=== PATIENT | female | born 1995 | race Caucasian/White ===

== ENCOUNTER 2024-08-28 09:53 | Outpatient (CLI) | payer OTHER, SELFPAY ==
[2024-08-28 18:26] LABS: Basophils # 0.1 K/mm3 (0-0.2); Basophils % 0.6 % (0.1-2.0); Eosinophils # 0.2 K/mm3 (0.0-0.4); Eosinophils % 1.8 % (0.1-12.0); Hematocrit 34.7 % (37.0-47.0); Hemoglobin 10.7 g/dL (12.2-16.2); Lymphocytes # 3.2 K/mm3 (0.7-4.5); Lymphocytes % 33.9 % (10-50); Mean Corpuscular HGB Conc 30.8 g/dL (31.8-35.4); Mean Corpuscular Hemoglobin 25.9 pg (27.0-31.2); Mean Platelet Volume 9.3 fl (7.4-10.4); Monocytes # 0.4 K/mm3 (0.1-1.0); Monocytes % 3.9 % (1.7-9.3); Neutrophils # 5.6 K/mm3 (1.8-7.8); Neutrophils % 59.6 % (37.0-80.0); Platelet Count 441 K/mm3 (142-424); Red Blood Count 4.13 M/mm3 (4.20-5.40); Red Cell Distribution Width 14.9 % (11.5-17.5); White Blood Count 9.3 K/mm3 (4.8-10.8)
[2024-08-28 19:34] LABS: Albumin Level 4.1 g/dl (3.5-5.0); Chloride 104 mmol/L (98-107); Potassium 4.4 mmoL/L (3.5-5.1); Sodium 138 mmol/L (136-145)
[2024-08-28 19:37] LABS: Alanine Aminotransferase 44 U/L (12-78); Albumin/Globulin Ratio 1.5 (1.1-1.8); Alkaline Phosphatase 126 U/L (38-126); Anion Gap 13.4 mEq/L (5-15); Aspartate Amino Transferase 41 U/L (14-36); Bilirubin,Total 0.3 mg/dl (0.2-1.3); Blood Urea Nitrogen 20 mg/dl (7-17); Carbon Dioxide 25 mmol/L (22.0-30.0); Cholesterol 187 mg/dl (140-200); Estimated Glomerular Filt Rate 118 ml/min (>60); GFR (African American) 143 ML/MIN (>60); Globulin 2.8 g/dL (1.3-3.2); Total Protein,Serum 6.9 g/dl (6.3-8.2); Triglycerides 103 mg/dl (30-150); VLDL Cholesterol 21 mg/dL (0-40)
[2024-08-28 19:38] LABS: Calcium 8.8 mg/dl (8.4-10.2); Chol/HDL Ratio 5.8 (1-3.5); Glucose 97 mg/dl (74-100); HDL Cholesterol 32 mg/dl (40-60)
[2024-08-28 20:06] LABS: Direct LDL Cholesterol 137.04 mg/dL (100-129)
== END 2024-08-28 23:59 | disposition home or self-care (01) ==
LOC: LAB.DROPOF 08-29 12:02
PROVIDERS: PCP Family Medicine; Visit Provider Family Medicine
DX: Z76.89 Persons encountering health services in other specified circumstances (principal); M79.89 Other specified soft tissue disorders; R60.9 Edema, unspecified; Z98.891 History of uterine scar from previous surgery; E66.9 Obesity, unspecified; F19.11 Other psychoactive substance abuse, in remission
CPT/HCPCS: 80053; 80061; 84443; 85025

== ENCOUNTER 2025-01-04 14:50 | Outpatient (CLI) | payer OTHER, SELFPAY ==
--- OUTSIDE RECORDS SUMMARY | 2025-01-05 14:38 | XMS_ITS | Data Portability ---
Author Organization [facility] Address [address] [place] [address] Assessment Encounter Date Assessment Date Assessment LastModified by Organization Details LastModified Time 05/01/2020 05/01/2020 P2 @ 32 4/7 weeks, PPROM. To L&D now. Nursing and production tester made aware. [email or web address] Not available 05/01/2020 16:06:47 06/11/2020 06/11/2020 DIscussed how to perform wet/dry dressing changes. SHe understands. 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 FOB is out of the area working. f/u 3 days. Start Z_pack. ER precautions. MUST KEEP CLEAN AND DRY! 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 Lab CBC w/ auto diff 2020 021 [email or web address] [facility], [address] [place], [address], 09:12:49 ESR (erythrocy te sedimentat ion rate), blood 2020 [email or web address] [facility], [address] [place] [address], [address], 09:12:49 TSH, ultra-sens itive, serum 2020 [email or web address] [facility], [address] [place] [address], [address], 09:12:49 lh + FSH, serum 2020 [email or web address] [facility], [address] [place] [address], [address], 09:12:50 prolactin, serum 2020 [email or web address] [facility], [address] [place] [address], [address], 09:12:50 testostero ne, free + total, serum 2020 [email or web address] [facility], [address] [place] [address], [address], 09:12:50 HbA1c (hemoglobi n A1c), blood 2020 [email or web address] [facility], [address] [place] [address], [address], 09:12:50 culture, urine 2020 [email or web address] [facility], [address] [place] [address], [address], 09:12:50 urinalysis , complete 2020 [email or web address] [facility], [address] [place] [address], [address], 1 09:12:50 test, urine 2020 021 nallely [employer] [employer], [address] [place] [address] , [place], [address], 1 22:09:13 pap, IG + CT/NG/TV + HR HPV + reflex HPV (16+18+45) 2020 021 [facility], [address] [place] [address], [address], 1 13:10:18 culture, wound 2019 020 [facility], [address] [place] [address], [address], 0 20:08:38 urinalysis , dipstick 2019 020 [facility], [address] [place] [address] , [place], [address], 0 08:14:40 urinalysis , dipstick [email or web address] [employer], [address] [place] [address] , [place], [address], 0 08:44:50 Referral gastroente rologist referral 2020 nallely Reynaga MD, [address] [place] [address] , [place] [address], [place], [address], 2 23:21:31 gynecologi c surgery referral - Dx laparoscop y, hysterosco py DC 2020 nallely Not available 2 23:21:28 home health referral 2019 [email or web address] Not available 0 10:49:52 Procedures None recorded. Surgeries None recorded. Imaging US, transvagin al 2020 021 nallely [employer] [employer], [address] [facility] , [place], [address], 1 22:09:13 US, obstetric, follow-up 2019 GAIL Vang [employer], [address] [facility] , [place], [address], 0 17:07:27 Medication Orders minocyclin e 100 mg tablet 2020 [email or web address] [facility] [id number], [address] [facility] , [place], [address], 4 14:07:58 Sprintec (28) 0.25 mg-0.035 mg tablet 2020 021 [facility] [id number], [address] [facility] , [place], [address], 1 22:09:13 fluconazol e 150 mg tablet 2019 020 [email or web address] [facility] [id number], [address] [facility] , [place], [address], 1 11:56:04 ibuprofen 800 mg tablet 2019 021 [email or web address] [facility] [id number], [address] [place], [address], 1 12:00:15 azithromyc in 250 mg tablet 2019 [email or web address] [facility] [id number], [address] [facility] , [place], [address], 0 16:46:34 Patient TargetsNo targets recorded. Patient Instructions Encounter Date Encounter Id Patient Instructions Last Modified By Organization Details Last Modified Time 06/18/2020 [id number] Recommended keeping area dry. Given a few ABD pads and recommend keeping raw areas loosely covered. tam Not available 06/18/2020 17:29:08 06/09/2021 [id number] The patient was counseled about the following procedures: Procedures planned: Total laparoscopic hysterectomy, Tota l abdominal hysterectomy, vagi nal hysterectomy, diag nostic laparoscopy, BSO, possible USO or BSO, repeat section laparoscop ic sterilization, hys teroscopic sterilization, mikhail gnostic hysteroscopy, dila tion and curettage, Miduret hral Sling - Transobturator approach, Midureth ral Sling- Retropubic approach, uterosac ral vault suspension, endome trial ablation with NovaSure, sacrospi nous vaginal vault suspension, use of mesh for vaginal reconstruction and support, colporrap hy, hysteroscopic myomectomy, hyster oscopic polypectomy, chrom opertubation, diag nostic laparoscopy, diagnostic hysteroscopy, D&C. The indications and potential benefits of the proposed surgery were reviewed. 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 The alternatives to this procedure which include alternatives as below were discussed and patient prefers to proceed with the above surgical option. Alternative treatments offered: expectant management, further medical treatment trials, were discussed and patient prefers to proceed with the above surgical option. Issues Specific to her proposed procedure: Diagnostic laparoscopy and/or hysteroscopy- For this case we also addresed that this is intended as a diagnostic procedure that may or may not provide relief of preop symptoms The proposed benefit of the surgical procedure is for resolution of pre-op complaints/concern s, however no guarantee can be made regarding surgical outcome(s). Realistic expectations have been discussed and patient desires to proceed. [email or web address] Not available 06/09/2021 20:24:31 Reason for Referral Home Health Referral for Sulaiman arean wound disruption c-sectionn wound care, wet/.dry Daily Referring Physician: Mark Roth, PUTTY AND CAULKING SUPERVISOR, Encounter Date: 06/11/2020 Gynecologic Surgery Referral for Chronic pelvic pain of female Dx laparoscopy, hysteroscopy DC Referring Physician: Marlee Godoy PUTTY AND CAULKING SUPERVISOR, Encounter Date: 06/09/2021 Robotic Toy Inventor Referral for Painless rectal bleeding Referring Physician: Marlee Godoy PUTTY AND CAULKING SUPERVISOR, Encounter Date: 06/09/2021 Results Created Date Observation Date Name Description Value Unit Range Abnormal Flag Note LastModifiedBy Organization Detail LastModifiedTime 05/01/20 20 05/01/2020 US, obste tric, follo w-up Date 020 Not Available [facility] [employer] [address] [facility] , [place], [address], 05/01/2020 15:08:46 06/11/20 20 06/14/2020 cultu re, wound aerobic culture Final report Not Available [facility] ([facility]) [address] [place], [address], 06/19/2020 20:08:38 06/11/20 20 06/14/2020 cultu re, wound result 1 Mixed skin judith Not Available [facility] ([facility]) [address] [place], [address], 06/19/2020 20:08:38 06/11/20 20 06/19/2020 cultu re, wound anaerobic culture Final report abnormal Not Available [facility] ([facility]) [address] [place], [address], 06/19/2020 20:08:38 06/11/20 20 06/19/2020 cultu re, wound result 1 Anaero coccus prevot ii abnormal Moder ate growt h Not Available [facility] ([facility]) [address] [place], [address], 06/19/2020 20:08:38 06/09/20 21 06/10/2021 IGP,C TNG,A PTIMA HPV,R FX16/ 18,45 chlamydia, nuc. acid amp Negati ve negati ve Not Available [facility] ([facility]) [address] [facility], [place], [address], 06/12/2021 13:10:18 06/09/20 21 06/10/2021 IGP,C TNG,A PTIMA HPV,R FX16/ 18,45 gonococcus, nuc. acid amp Negati ve negati ve Not Available [facility] ([facility]) [address] [facility], [place], [address], 06/12/2021 13:10:18 06/09/20 21 06/11/2021 IGP,C TNG,A PTIMA HPV,R FX16/ 18,45 HPV aptima Negati ve negati ve This nucle ic acid ampli ficat ion test detec ts fourt een high- risk HPV types (16,1 8,31, 33,35 ,39,4 5,51, 52,56 ,58,5 9,66, 68) witho ut diffe renti ation . Not Available [facility] ([facility]) [address] [facility], [place], [address], 06/12/2021 13:10:18 06/09/20 21 06/12/2021 IGP,C TNG,A PTIMA HPV,R FX16/ 18,45 diagnosis: Commen t NEGAT JOSSELINE FOR INTRA EPITH ELIAL LESIO N OR LILI FRANCISCO . Not Available [facility] ([facility]) [address] [facility], [place], [address], 06/12/2021 13:10:18 06/09/20 21 06/12/2021 IGP,C TNG,A PTIMA HPV,R FX16/ 18,45 specimen adequacy: Commen t Satis facto ry for evalu ation . Endoc ervic al and/o r squam ous metap lasti c cells (endo cervi ray compo nent) are prese nt. Not Available [facility] ([facility]) [address] [facility], [place], [address], 06/12/2021 13:10:18 06/09/20 21 06/12/2021 IGP,C TNG,A PTIMA HPV,R FX16/ 18,45 clinician provided ICD10: Asim tejada N91.5 Z12.4 Z11.3 R82.9 0 Not Available [facility] ([facility]) [address] [place], [address], 06/12/2021 13:10:18 06/09/20 21 06/12/2021 IGP,C TNG,A PTIMA HPV,R FX16/ 18,45 performed by: Crystal Otto (ASCP ) Not Available [facility] ([facility]) [address] [place], [address], 06/12/2021 13:10:18 06/09/20 21 06/12/2021 IGP,C TNG,A PTIMA HPV,R FX16/ 18,45 . . Not Available [facility] ([facility]) [address] [place], [address], 06/12/2021 13:10:18 06/09/20 21 06/12/2021 IGP,C TNG,A PTIMA HPV,R FX16/ 18,45 note: Asim tejada The Pap smear is a scree carmelita test desig tyrel to aid in the detec tion of анна ligna nt and malig nant condi tions of the uteri ne cervi x. It is not a diagn ostic proce dure and shoul d not be used as the sole means of detec ting cervi ray cance r. Both false -posi tive and false -nega tive repor ts do occur . Not Available [facility] ([facility]) [address] [place], [address], 06/12/2021 13:10:18 06/09/20 21 06/12/2021 IGP,C TNG,A PTIMA HPV,R FX16/ 18,45 test methodology: Commen t This liqui d based ThinP rep(R ) pap test was scree tyrel with the use of an image guide abbi cole Not Available [facility] ([facility]) [address] [facility], [place], [address], 06/12/2021 13:10:18 06/09/20 21 06/09/2021 pregn joseph test, urine HCG negati ve Not Available [employer] [employer] [address] [facility] , [place], [address], 06/09/2021 13:02:03 02/21/20 US, obste tric, follo w-up No observ ation record ed. [email or web address] Not Available 2019 11:22:18 02/21/20 20 02/08/2020 US, obste tric, follo w-up No observ ation record ed. [email or web address] [facility] [address] [place], [address], 02/28/2020 13:24:20 02/21/20 20 02/08/2020 US, obste tric, follo w-up No observ ation record ed. [email or web address] [facility] [address] [place], [address], 02/28/2020 13:24:07 03/07/20 20 01/23/2020 US, obste tric, 2nd or 3rd trime ster, addit ional gesta tion No observ ation record ed. BARCODE [employer] [employer] [address] [facility] , [place], [address], 03/07/2020 09:32:58 03/10/20 20 03/07/2020 imagi ng/di agnos tic resul t No observ ation record ed. [email or web address] [facility] [address] [place], [address], 03/13/2020 13:00:33 05/06/20 20 05/02/2020 US, obste tric, follo w-up No observ ation record ed. [email or web address] [employer] [address] [place] [address] , [place], [address], 05/07/2020 11:46:04 05/07/20 20 05/06/2020 US, obste tric, 2nd trime ster No observ ation record ed. [facility] [address] [facility], [place], [address], 05/08/2020 08:33:51 05/07/20 20 05/01/2020 US, obste tric, follo w-up No observ ation record ed. BARCODE [employer] [address] [place] [address] , [place], [address], 05/07/2020 14:21:44 05/08/20 20 05/07/2020 US, obste tric, follo w-up No observ ation record ed. [facility] [address] [facility], [place], [address], 05/15/2020 06:40:43 05/09/20 20 05/03/2020 US, obste tric, follo w-up No observ ation record ed. [email or web address] [employer] [address] [place] [address] , [place], [address], 05/15/2020 08:51:51 06/09/20 21 06/09/2021 US, trans vagin al No observ ation record ed. [email or web address] [employer] [address] [place] [address] , [place], [address], 06/09/2021 20:27:04 06/12/20 21 06/09/2021 US, trans vagin al No observ ation record ed. [email or web address] [employer] [address] [place] [address] , [place], [address], 06/12/2021 16:24:00 Result Notes None recorded. Problems Name Problem SNOMED Code Status Onset Date Resolution Date Notes Provider Name and Address Organization Details Recorded Time Abnormal cervical Papanico laou smear 389215147 Active 2016 ASCUS + HPV [facility] [address], [place], [address], [place] - [facility] 8 09:49:33 Abnormal cervical Papanico laou smear 774422206 Completed 2016 ASCUS + HPV [facility] [address], [place], [address], [place] [facility] 8 09:49:33 Active or passive immuniza tion Completed Declined Flu vaccine TDAP given Infusion Nurse [facility] [address], [place], [address], [facility] - [facility] 8 09:49:33 Maternal obesity complica ting pregnanc y, childbir th and the pu[place] , [facility] 8137824965 07 Completed 2016 BMI 45- needs early 1 hr gtt. No showed until 24 weeks - performe d/ Infusion Nurse [address], [place], [address], [facility] - [facility] 8 09:49:33 Maternal obesity complica ting pregnanc y, childbir th and the [place] [facility] 9326734022 07 Completed 201608/04/2017 BMI 45- needs early 1 hr gtt. No showed until 24 weeks - performe d/ Lizzy ackerman, [place] - [facility] 18:18:09 Liver function tests outside referenc e range 875314346 Completed 2016 ALT 80, AST 47, Alkaline Phos 396, - Needs - Bile Acids___ _ and RUQ U/S_-WNL at hosp 07/28/17 ___, Start twice wkly NST [facility] [address], [place], [address], [place] [facility] 8 09:49:33 Liver function tests outside referenc e range 527176205 Completed 201612/28/2019 ALT 80, AST 47, Alkaline Phos 396, - Needs - Bile Acids___ _ and RUQ U/S_-WNL at hosp 07/28/17 ___, Start twice wkly NST Meghan Joel, CALL OR CONTACT CENTRE OPERATOR [address], [place], [address], [facility] - [facility] 0 14:00:07 Deliveri es by [id number] Completed 08/04/2017 [facility] Nurse [facility] [address], [place], [address], [facility] - [facility] 8 09:47:09 Maternal tobacco use 037530988 Completed 201612/10/2020 1 ppd: urged to quit Lizzy ackerman, [place] - [facility] 1 18:18:11 Group B Streptoc occus carrier 3071199402 103 Completed Needs treated in Labor [facility] [address], [place], [address], [facility] - [facility] 8 09:49:33 Cholesta sis 84478015 Completed [facility] [address], [place], [address], [place] [facility] 8 09:49:33 Acne vulgaris 38000865 Completed 201706/09/2021 Lizzy ackerman, [place] - [facility] 1 11:57:27 Generali zed anxiety disorder 15493397 Active 2017 Marietta Pond MD [address], [place], [address], [facility] - [facility] 8 13:40:47 Antenata l screenin g Completed Declined CF, FTS, materniT 21, QUAD 01/22 Mitch Navarrete RN [address], [place], [address], [place] [facility] 0 11:27:59 Active or passive immuniza tion Completed [x] Flu vaccine- Declined [ ] TDAP @ 30 wks Mitch Navarrete RN [address], [place], [address], [place] [facility] 0 11:27:59 Pregnanc y 23063602 Completed 201912/28/2019 Meghan Joel APRN [address], [place], [address], [place] [facility] 0 14:01:03 Supervis ion of high risk pregnanc y with history of previous section done [id number] 9106 Completed LTCS x 2 Plans Rpt with TL Mitch Navarrete RN [address], [place], [address], [place] [facility] 0 11:27:59 Smoker 36527461 Completed Advised to quit 2+ ppd with anxiety Hoda Hansen MD [address], [place], [address], [place] [facility] 0 08:41:13 Infectio n by Vimal lepe [id number] Completed Rx flagyl provided 12/06 [ ] MANI with OBPE Mitch Navarrete RN [address], [place], [address], [place] [facility] 0 11:27:59 Twin pregnanc y 60476153 Completed DI/DI per 12 wk scan' Baby ASA Folic Acid 1 mg daily Mitch Navarrete RN [address], [place], [address], [place] [facility] 0 11:27:59 Supervis ion of high risk pregnanc y with history of previous section done [id number] 9106 Completed 12/10/2020 LTCS x 2 Plans Rpt with TL Lizzy Tania null, [place] - [facility] 1 18:18:12 Infectio n by Vimal lepe [id number] Completed 12/10/2020 Rx flagyl provided 12/06 [ ] MANI with OBPE Lizzy [place] null, [place] [facility] 1 18:18:01 Twin pregnanc y 29441114 Completed 12/10/2020 DI/DI per 12 wk scan' Baby ASA Folic Acid 1 mg daily Lizzy [place], [place] [facility] 1 18:18:17 History of drug abuse 415833721 Completed 12/28/2019 Lizzy [place]ania [place], [place] [facility] 1 18:18:29 Maternal tobacco use 455699140 Completed 2016 1 ppd: urged to quit Mitch Navarrete RN [address], [place], [address], [place] [facility] 0 11:28:00 Maternal obesity complica ting pregnanc y, childbir th and the puerperi um, antepart 9501263166 07 Completed 2019 BMI 43.8; A1C=5.1% Mitch Navarrete RN [address], [place], [address], [place] [facility] 0 11:27:59 Maternal obesity complica ting pregnanc y, childbir th and the puerperi , antepart 2159764375 07 Completed 201912/10/2020 BMI 43.8; A1C=5.1% Lizzy ackerman, [place] - [facility] 1 18:18:09 Past pregnanc y history of cholesta sis in pregnanc y [id number] 7756471 Completed 2019 { ] consider lft/bile acids with 28 wk lab 17-mi ld LFT changes/ BA=12.4 (NEVER HAD pruritus SX) , neg Hepatiti s panel and neg RUQ US PP, LFT normaliz ed by delivery Mitch Navarrete RN [address], [place], [address], [place] [facility] 0 11:27:59 Past pregnanc y history of cholesta sis in pregnanc y [id number] 9223543 Completed 201912/10/2020 { ] consider lft/bile acids with 28 wk lab 17-mi ld LFT changes/ BA=12.4 (NEVER HAD pruritus SX) , neg Hepatiti s panel and neg RUQ US PP, LFT normaliz ed by delivery Lizzy Marin null, [place] - [facility] 1 18:17:59 Drug dependen ce in mother complica ting pregnanc y, childbir th AND/OR puerperi um 55227658 Completed 201912/10/2020 [ ] uds q TM [ ] changing to pursue care at 18 wk Used Pain pills and heroin Snorted. Subutex 8mg BID- RX [facility] Baby will stay 96 hrs UDS positive for Subutex and Fentanyl Lizzy ackerman, [place] - [facility] 1 18:17:56 Drug dependen ce in mother complica ting pregnanc y, childbir th AND/OR puerperi 90865935 Completed 2019 [ ] uds q TM [ ] changing to pursue care at 18 wk Used Pain pills and heroin Snorted. Subutex 8mg BID- RX [facility] Baby will stay 96 hrs UDS positive for Subutex and Fentanyl Mitch Navarrete RN [address], [place], [address], [place] [facility] 0 11:27:59 Anxiety 66877662 Completed 2019 since teen, multiple med trials in the past-usi ng illicit drugs to self medicate at onset of pregnanc y, worsenin g, vistaril rxd but not enough, adivse discuss with mental health care provider s along with [facility] counseli ng/Rx Mitch Navarrete RN [address], [place], [address], [place] [facility] 0 11:27:59 Insuffic ient care 2829190529 109 Completed 201912/10/2020 Lizzy ackerman, [place] - [facility] 1 18:18:03 Insuffic ient care 5843748068 109 Completed 2019 Mitch Navarrete RN [address], [place], [address], [place] [facility] 0 11:27:59 History of drug abuse 149416436 Active Lizzy ackerman, [place] - [facility] 1 18:18:29 Weight gain 9021532 Active 2020 Marlee Godoy MD [address], [place], [address], [place] [facility] 1 20:26:15 Abnormal urine odor 4715153 Active 2020 Marlee Godoy MD [address], [place], [address], [place] [facility] 1 20:26:19 Painless rectal bleeding 279856286 Active 2020 Marlee Godoy MD [address], [place], [address], [place] [facility] 1 20:26:21 Dyspareu tori 66054608 Active 2020 Marlee Godoy MD [address], [place], [address], [place] [facility] 1 20:26:23 Oligomen orrhea 19407873 Active 2020 Marlee Godoy MD [address], [place], [address], [place] [facility] 1 20:26:25 Chronic pelvic pain of female 625104615 Active 2020 Marlee Godoy MD [address], [place], [address], [place] [facility] 1 20:26:27 Pregnanc y 61824221 Completed 201608/04/2017 Meghan Joel APRN [address], [place], [address], [place] [facility] 0 14:01:03 Deliveri es by [id number] Completed [facility] [address], [place], [address], [place] [facility] 8 09:49:33 Supervis ion of high risk pregnanc y with history of previous section done 1219991446 9106 Completed Prior c/s for FTP in labor. Plans for rpt C/S with possible TL [facility] [address], [place], [address], [place] [facility] 8 09:49:33 Supervis ion of high risk pregnanc y with history of previous section done 3696485019 9106 Completed 08/04/2017 Prior c/s for FTP in labor. Plans for rpt C/S with possible TL Lizzy ackerman, [place] - [facility] 1 18:18:12 Antenata l shankar g Completed 2016 24wk GA/jeannie - complete , anterior placenta , transver se, male, enlarged posterio r fossa - [facility] consult/ SMO - [facility] 05/06 - normal intracra nial anatomy - recommen d f/u 8 weeks./S MO Declined FTS Declined CF [facility] [address], [place], [address], [place] [facility] 8 09:49:33 Dysuria 79162779 Completed 03/24/2017 + Nitrites - Macrobid RX 01/08/17 Pending UA CX Positive UTI , rx with Macrobid , MANI next visit 03/24 - normal Meghan Joel, CALL OR CONTACT CENTRE OPERATOR [address], [place], [address], [place] [facility] 7 15:43:55 Acute urinary tract infectio n 201876851 Completed Eryn Delgado, DO [address], [place], [address], [place] [facility] 7 10:36:51 Maternal drug use 33057172 Completed 2016 Uds pos norfenta nyl UDS 04/19: + for buprenor phine, acetamin ophen-ct 06/09/17- taking Subutex 8 mg QD. [facility] Nurse [facility] [address], [place], [address], [place] [facility] 8 09:49:33 Maternal drug use 03194981 Completed 201612/10/2020 Used Pain pills and heroin Snorted. Subutex 8mg BID- RX [facility] Baby will stay 96 hrs UDS positive for Subutex and Fentanyl Lizzy ackerman, [place] - [facility] 18:18:05 Problem Notes None recorded. Procedures Surgical History Date Name Laterality Status Provider Name and Address Organization Details Recorded Time 06/09/20 21 Date of Last Pap Smear completed Lizzy Marin [place] - [facility] 06/12/2021 14:29:26 05/08/20 20 section completed Lizzy Marin [place] - [facility] 06/09/2021 11:58:49 05/01/20 20 OB Ultrasound Summary completed Vaibhav Strange [place] - [facility] 05/01/2020 15:17:24 01/23/20 20 OB Ultrasound Summary completed Vaibhav Strange [place] - [facility] 01/23/2020 09:11:23 12/14/19 20 OB Ultrasound Summary completed Vaibhav Strange [place] - [facility] 12/14/2019 15:33:06 07/17/20 17 delivery completed Lizzy [place] - [facility] 09/14/2017 08:27:44 07/09/20 17 OB Ultrasound Summary completed [place] - [facility] 07/09/2017 09:04:37 06/29/20 17 Colposcopy completed Meghan Joel, CALL OR CONTACT C[employer]RE OPERATOR [address], [place], [address], [place] - [facility] 06/29/2017 16:12:59 04/19/20 17 OB Ultrasound Summary completed [place] - [facility] 04/19/2017 09:33:56 12/25/19 16 delivery completed Татьяна Gilbert [place] - [facility] 7 13:17:08 Imaging Results None recorded. Procedure Notes None recorded. Medical Equipment None Reported. Allergies No known drug allergies Medications Name Sig Start Date Stop Date Status Note LastModified by Organization Details LastModified Time calcium carbonate 1500 (600 active Not Available Not Available No t Available folic acid 800 mcg tabs active Not Available Not Available Not Available thiamine hcl 100 mg tabs active Not Available Not Available Not Available vitamin d3 2000 unit tab TAKE 1 TABLET EVERY MORNING active Not Available Not Available No t Available Prescript ion - Prior Authoriza tion Request 01/17 completed Not Available Not Available Not Available vitamin d3 25 mcg (1000 ut) active Not Available Not Available No t Available cyclobenz aprine 10 mg tablet TAKE 1 TABLET BY MOUTH EVERY 8 HOURS NEEDED FOR CRAMPING OR MUSCLE SPASM FOR 14 DAYS. active Not Available Not Available No t Available amoxicill in 500 mg capsule TAKE 1 CAPSULE BY MOUTH THREE TIMES DAILY 05/18 completed Not Available Not Available Not Available methocarb yossi 500 mg tablet TAKE 1 TABLET BY MOUTH THREE TIMES DAILY NEEDED FOR MUSCLE PAIN OR CRAMPS active Not Available Not Available No t Available terconazo le 0.4 % vaginal cream insert 1 applicat orful by vaginal route once daily at bedtime for 7 days 06/18 completed Not Available Not Available Not Available venlafaxi ne ER 37.5 mg capsule,e xtended release 24 hr 1 tab po qd for 7 days 11/04 completed pt stopped Not Available Not Available Not Available clonidine HCl 0.1 mg tablet TAKE 1 TABLET BY MOUTH THREE TIMES A DAY NEEDED FOR 14 DAYS active Not Available Not Available No t Available acetamino phen 325 mg tablet 06/09 completed Not Available Not Available Not Available venlafaxi ne ER 75 mg capsule,e xtended release 24 hr Take 1 capsule every day by oral route. 11/04 completed Not Available Not Available Not Available Vitamin B-6 25 mg tablet Take 1 tablet twice a day by oral route. 06/09 completed Not Available Not Available Not Available clindamyc in HCl 300 mg capsule TAKE 1 CAPSULE BY MOUTH EVERY 6 HOURS FOR 10 DAYS 05/18 completed Not Available Not Available Not Available albuterol sulfate 2.5 mg/3 mL (0.083 %) solution for nebulizat ion Inhale 3 mL by nebuliza tion route. 11/28 completed Not Available Not Available Not Available Vitamin C 500 mg tablet active Not Available Not Available Not Available trazodone 50 mg tablet TAKE 1 TABLET AT BEDTIME NEEDED active Not Available Not Available No t Available azithromy adebayo 250 mg tablet TAKE 2 TABLETS (500 MG) BY ORAL ROUTE ONCE DAILY FOR 1 DAY THEN 1 TABLET (250 MG) BY ORAL ROUTE ONCE DAILY FOR 4 DAYS 06/18 completed Not Available Not Available Not Available ibuprofen 800 mg tablet TAKE ONE TABLET BY MOUTH EVERY 6 HOURS NEEDED FOR PAIN active Not Available Not Available No t Available fluconazo le 150 mg tablet [[id number]:[id number]]: DIFLUCAN , 150 MG X 1TABLET( S) , ORAL, TABLET, ONCE, FOR 1 DAY active Not Available Not Available No t Available ondansetr on HCl 8 mg tablet TAKE 1 TABLET TWO TIMES A DAY NEEDED active Not Available Not Available No t Available promethaz ine 12.5 mg tablet Take 1 tablet twice a day by oral route as needed. 06/09 completed Not Available Not Available Not Available ondansetr on HCl 4 mg tablet TAKE 1 TABLET BY MOUTH EVERY 8 HOURS NEEDED FOR NAUSEA active Not Available Not Available No t Available prednison e 20 mg tablet TAKE 2 TABLETS BY MOUTH EVERY MORNING FOR 5 DAYS active Not Available Not Available No t Available thiamine HCl (vitamin B1) 100 mg tablet active Not Available Not Available No t Available hydroxyzi ne pamoate 50 mg capsule Take 1 capsule 4 times a day by oral route. 06/09 completed Not Available Not Available Not Available penicilli n V potassium 500 mg tablet 06/18 completed Not Available Not Available Not Available metronida zole 500 mg tablet One tablet twice a day for 7 days 06/09 completed Not Available Not Available Not Available acetamino phen 300 mg-codein e 30 mg tablet TAKE 1 TABLET BY MOUTH EVERY 6 HOURS NEEDED FOR DENTAL PAIN active Not Available Not Available No t Available ciproflox acin 500 mg tablet TAKE 1 TABLET TWO TIMES A DAY FOR 7 DAYS 05/18 completed Not Available Not Available Not Available sulfameth oxazole 800 mg-trimet hoprim 160 mg tablet [POI:[id number]]: BACTRIM DS, 800 MG-160 MG X 1TABLET( S) , ORAL, TABLET, RWSS: TWICE DAILY (BID) , FOR 7 DAYS 05/18 completed Not Available Not Available Not Available aspirin 81 mg tablet,de layed release take 1 tablet (81 mg) by oral route once daily for 30 days 03/25 completed aspirin 81 mg oral tablet,d elayed release (/EC); Prescrib e Status: Prescrib ed on: 11/26/19 16 11:04AM; User: [email or web address]; Est. Completi on: 03/25/20 16;Pharm Arias ied: 11/26/19 16 11:04AM Not Available Not Available Not Available Zantac 150 mg tablet take 1 tablet (150 mg) by oral route 2 times per day for 30 days 01/01 completed Zantac 150 mg oral tablet;P rescribe Status: Prescrib ed on: 07/17/20 15 12:07PM; Disconti nued Status: Disconti nued on: 01/02/20 16 2:56PM;U ser: elian ;Est. Completi on: 02/12/20 16;Indic ation: Heartbur n - ([id number]);Phabenny Freeman fied: 07/17/20 15 12:07PM Not Available Not Available Not Available Vitamin tablet Take 1 tablet every day by oral route at bedtime for 30 days. 08/30 completed Not Available Not Available Not Available oxycodone -acetamin ophen 5 mg-325 mg tablet 01/08 completed Not Available Not Available Not Available propranol ol 10 mg tablet 06/09 completed Not Available Not Available Not Available calcium 600 mg (as calcium carbonate 1,500 mg) tablet active Not Available Not Available Not Available cyanocoba torres (vit B-12) 500 mcg tablet active Not Available Not Available Not Available Depo-Prov era 150 mg/mL intramusc ular suspensio n Inject 1 mL every 3 months by intramus cular route as directed . 05/12 completed Not Available Not Available Not Available trazodone 100 mg tablet TAKE 1 TABLET BY MOUTH AT BEDTIME active Not Available Not Available No t Available nicotine (polacril ex) 4 mg gum active Not Available Not Available Not Available dicyclomi ne 20 mg tablet TAKE 1 TABLET BY MOUTH THREE TIMES DAILY NEEDED FOR STOMACH CRAMPING active Not Available Not Available No t Available cephalexi n 500 mg capsule 06/18 completed Not Available Not Available Not Available docusate sodium 100 mg capsule active Not Available Not Available Not Available aspirin 81 mg chewable tablet Chew 1 tablet every day by oral route. 06/09 completed Not Available Not Available Not Available Provera 10 mg tablet Take 1 tablet every day by oral route for 10 days. 02/17 completed Not Available Not Available Not Available folic acid 1 mg tablet Take 1 tablet every day by oral route. 06/09 completed Not Available Not Available Not Available amoxicill in 250 mg capsule 05/18 completed Not Available Not Available Not Available mupirocin 2 % topical ointment [[id number]]: MUPIROCI N TOPICAL, 2% X 1GRAM(S) , TOPICAL, CREAM, RWSS: THREE TIMES DAILY (TID), FOR 10 DAYS active Not Available Not Available No t Available furosemid e 20 mg tablet TAKE 1 TABLET BY MOUTH EVERY DAY active Not Available Not Available No t Available pyridoxin e (vitamin B6) 100 mg tablet active Not Available Not Available No t Available ibuprofen 600 mg tablet 06/09 completed Not Available Not Available Not Available oxycodone -acetamin ophen 7.5 mg-325 mg tablet 01/08 completed Not Available Not Available Not Available docusate sodium 250 mg capsule 06/09 completed Not Available Not Available Not Available ondansetr on 4 mg disintegr ating tablet DISSOLVE 1 TABLET ON THE TONGUE EVERY 6 TO 8 HOURS NEEDED FOR NAUSEA OR VOMITING active Not Available Not Available No t Available cefdinir 300 mg capsule 02/17 completed Not Available Not Available Not Available fluticaso ne propionat e 50 mcg/actua tion nasal spray,qiana pension [POI:[id number]]: FLONASE, 50 MCG/INH X 1MILLILI TER(S) , NASAL, SPRAY, ONCE A DAY (AM), UNTIL FURTHER NOTICE active Not Available Not Available No t Available sertralin e 50 mg tablet Take 1 tablet every day by oral route at bedtime. 09/27 completed due to talking in sleep Not Available Not Available Not Available dicyclomi ne 10 mg capsule TAKE 1 CAPSULE BY MOUTH THREE TIMES A DAY NEEDED FOR ABDOMINA L CRAMPS active Not Available Not Available No t Available folic acid 800 mcg tablet active Not Available Not Available Not Available prazosin 2 mg capsule TAKE 1 CAPSULE BY MOUTH AT BEDTIME active Not Available Not Available No t Available naproxen 500 mg tablet 08/30 completed Not Available Not Available Not Available amoxicill in 875 mg-potass ium clavulana te 125 mg tablet [POI:165 [id number]]: AMOXICIL SONIA-CLAV ULANATE, 875 MG-125 MG X 1TABLET( S) , ORAL, TABLET, RW-YOLETTE: TWICE DAILY (BID), FOR 7 DAYS 05/18 completed Not Available Not Available Not Available Ventolin HFA 90 mcg/actua tion aerosol inhaler INHALE 2 PUFFS BY MOUTH EVERY 4 HOURS NEEDED 11/28 completed Not Available Not Available Not Available magnesium 250 mg (as magnesium oxide) tablet active Not Available Not Available Not Available hydroxyzi ne pamoate 25 mg capsule TAKE 1 CAPSULE BY MOUTH THREE TIMES A DAY NEEDED FOR ANXIETY FOR 14 DAYS. active Not Available Not Available No t Available One Daily Multivita min tablet TAKE ONE TABLET BY MOUTH DAILY EVERY MORNING active Not Available Not Available No t Available Vitamin 27 mg iron-0.8 mg tablet Take 1 tablet every day by oral route. 06/09 completed Not Available Not Available Not Available Bactrim 400 mg-80 mg tablet Take one tablet twice daily for 3 days 01/08 completed Bactrim 400-80 mg oral tablet;P rescribe Status: Prescrib ed on: 01/06/20 16 2:33PM;U ser: stroopr; Est. Completi on: 01/09/20 16;Indic ation: Bacteria l Urinary Tract Infectio n - ([id number]);Phar macyVeri fied: 01/06/20 16 2:33PM Not Available Not Available Not Available escitalop moe 10 mg tablet 06/09 completed Not Available Not Available Not Available Sprintec (28) 0.25 mg-0.035 mg tablet Take 1 tablet every day by oral route. active Not Available Not Available No t Available buprenorp susanne 8 mg-naloxo ne 2 mg sublingua l tablet DISSOLVE 2 TABLETS UNDER THE TONGUE DAILY active Not Available Not Available No t Available buprenorp susanne HCl 8 mg sublingua l tablet PLACE 2 TABLETS UNDER THE TONGUE ONCE DAILY active Not Available Not Available No t Available minocycli ne 100 mg tablet Take 1 tablet every 12 hours by oral route for 14 days. 05/18 completed Not Available Not Available Not Available nitrofura ntoin monohydra te/macroc rystals 100 mg capsule take 1 capsule (100 mg) by oral route 2 times per day with food for 7 days 06/09 completed Not Available Not Available Not Available Pain Relief (acetamin ophen) 500 mg tablet 06/09 completed Not Available Not Available Not Available 27 mg iron-0.8 mg tablet take 1 tablet by oral route once daily 11/25 completed 27-0.8 mg oral tablet;R ecorded Status: Recorded on: 04/24/20 15 1:28PM;D iscontin ued Status: Disconti nued on: 11/26/19 16 11:20AM; User: [email or web address] Not Available Not Available Not Available 04/19 completed Not Available Not Available Not Available cholecalc iferol (vitamin D3) 25 mcg (1,000 unit) tablet active Not Available Not Available Not Available melatonin 5 mg tablet active Not Available Not Available Not Available Vitamin D3 50 mcg (2,000 unit) tablet active Not Available Not Available Not Available omega 3-dha-epa -fish oil 300 mg-1,000 mg capsule active Not Available Not Available Not Available Mucus Relief ER 600 mg tablet, extended release TAKE 2 TABLETS BY MOUTH TWO TIMES A DAY FOR 14 DAYS NEEDED active Not Available Not Available No t Available 28 mg iron-800 mcg tablet take 1 tablet by oral route daily 04/19 completed Not Available Not Available Not Available Fioricet 50 mg-300 mg-40 mg capsule take 1 capsule by oral route every 4 hours as needed 12/08 completed Fioricet 50-300-4 0 mg oral capsule; Recorded Status: Recorded on: 01/06/20 16 2:32PM;U ser: stroopr; Indicati on: Headache - (784.0) Not Available Not Available Not Available Epiduo 0.1 %-2.5 % topical gel with pump APPLY A THIN LAYER TO THE AFFECTED AREA(S) OF THE FACE AND/OR UPPER TRUNK AFTER WASHING BY TOPICAL ROUTE ONCE DAILY 11/04 completed Not Available Not Available Not Available PrePlus 27 mg iron-1 mg tablet 06/09 completed Not Available Not Available Not Available naloxone 4 mg/actuat ion nasal spray CALL 911. SPR CONTENTS OF ONE SPRAYER (0.1ML) INTO ONE NOSTRIL. REPEAT IN 2-3 MIN IF SYMPTOMS OF OPIOID EMERGENC Y PERSIST, ALTERNAT E NOSTRILS active Not Available Not Available No t Available Sublocade 300 mg/1.5 mL solution, extended release subcutane ous syringe INJECT 300MG SUBCUTAN EOUSLY ONCE MONTHLY active Not Available Not Available No t Available Vitals Date Recorded Body height Body mass index (BMI) Body weight Systolic blood pressure Diastolic blood pressure Provider Name and Address Organization Details Last Updated DateTime 03/07/2020 161.29 cm 44.5 kg/m2 114566.0 5435 g 112 mm[Hg] 66 mm[Hg] May Tune [place] - [facility] 0 15:29:44 Date Recorded Body height Body mass index (BMI) Body weight Systolic blood pressure Diastolic blood pressure Provider Name and Address Organization Details Last Updated DateTime 05/01/2020 161.29 cm 44.6 kg/m2 834037.6 4672 g 110 mm[Hg] 78 mm[Hg] Shira Evans [place] - [facility] 0 15:26:50 Date Recorded Body height Body mass index (BMI) Body weight Systolic blood pressure Diastolic blood pressure Provider Name and Address Organization Details Last Updated DateTime 06/09/2021 161.29 cm 54.1 kg/m2 966350.6 3 g 116 mm[Hg] 72 mm[Hg] Lizzy Marin [place] - [facility] 1 11:55:45 Date Recorded Body weight Provider Name an d Address Organization Details Last Updated DateTime 06/11/2020 033609.5613 g Mitch Navarrete RN [address], [place], [address], [place] - [facility] 07/31/2020 11:28:08 Date Recorded Body height Body mass index (BMI) Provider Name and Address Organization Details Last Updated DateTime 06/11/2020 161.29 cm 43.6 kg/m2 Lizzy Marin [place] - [facility] 06/11/2020 16:10:53 Date Recorded Body weight Provider Name an d Address Organization Details Last Updated DateTime 06/18/2020 995813.86051 g Mitch Navarrete RN [address], [place], [address], [place] - [facility] 07/31/2020 11:28:08 Date Recorded Body height Body mass index (BMI) Systolic blood pressure Diastolic blood pressure Provider Name and Address Organization Details Last Updated DateTime 06/18/2020 161.29 cm 44.5 kg/m2 114 mm[Hg] 70 mm[Hg] Roz Abdirashid [place] - [facility] 06/18/2020 16:46:16 Social History Question Answer Notes LastModified by Organizat ion Details LastModified Time Tobacco Smoking Status Current Every Day Smoker Татьяна Alvarezvictor manuel [place], [place] - [facility] 12/08/2016 13:26:19 Do You Have An Advance Directive? No Information not available 12/08/2016 If You Are , What Was Your Level Of Alcohol Consumption Prior To ? None Information not available 12/08/2016 Is Anesthesia Consult Planned? Yes Information not available 12/08/2016 Plan No Information no t available 12/08/2016 Are You Blind Or Do You Have Difficulty Seeing? No Information not available 12/08/2016 Is Blood Transfusion Acceptable In An Emergency? Yes Information not available 12/08/2016 Breast Feeding? No Informati on not available 12/08/2016 What Is Your Level Of Caffeine Consumption? Moderate Information not available 12/08/2016 Live With Cats/exposure To Cat Litter No Information not available 12/08/2016 How Much Tobacco Do You Chew? None Information not available 12/08/2016 Are You Deaf Or Do You Have Serious Difficulty Hearing? No Information not available 12/08/2016 Diabetes No Information no t available 12/08/2016 What Type Of Diet Are You Following? REGULAR Information not available 12/08/2016 Which Illicit Or Recreational Drugs Have You Used? H/o Heroid, Pain Pills Information not available 06/09/2021 Education 11 Information no t available 12/08/2016 Have There Been Any Changes To Your Family Or Social Situation? No Information no t available 12/08/2016 Frequent Air Travel No Information not available 12/08/2016 Hard Of Hearing Or Deaf In One Or Both Ears? No Information not available 11/04/2017 High Blood Pressure No Information not available 12/08/2016 High Cholesterol No Informat ion not available 12/08/2016 High Number Of Sexual Partners No Information not available 12/08/2016 Illicit Drugs Pre- Subutex From [facility] Information not available 11/29/2019 How Many Years Have You Used Illicit Or Recreational Drugs? 2.5 Information not available 11/29/2019 Legally Blind In One Or Both Eyes? No Information no t available 11/04/2017 Live Alone Or With Others? With Others Information not available 12/08/2016 Latex Allergy No Information not available 12/08/2016 Marital Status Single Informatio n not available 12/08/2016 What Was The Date Of Your Most Recent Tobacco Screening? 08/06/2023 [email or web address] Information not available 08/06/2023 How Many Children Do You Have? 2 Information not available 11/29/2019 Do You Have Any Pets? No Information not available 12/08/2016 What Is Your Relationship Status? Single Information not available 12/08/2016 Seat Belts Used Routinely Yes Information not available 12/08/2016 Are You Sexually Active? Yes Information not available 12/08/2016 Smoke Alarm In Home Yes Information not available 11/04/2017 Do You Have Smoke And Carbon Monoxide Detectors In Your Home? No Information not available 12/08/2016 At What Age Did You Start Smoking Tobacco? 20 Information not available 11/29/2019 Are You Passively Exposed To Smoke? Yes Information no t available 12/08/2016 How Much Tobacco Do You Smoke? 1 PPD Information not available 11/29/2019 Smoking Pre- Yes Information not available 12/08/2016 General Stress Level Low Information not available 12/08/2016 Do You Use Sunscreen Routinely? Yes Information not available 12/08/2016 Has Tobacco Cessation Counseling Been Provided? No Information not available 12/08/2016 How Many Years Have You Smoked Tobacco? 5 Information not available 06/09/2021 Do You Have Difficulty Walking Or Climbing Stairs? No Information not available 12/08/2016 Do You Have Symptoms Associated With Zika Virus (fever, Rash, Joint Pain, Or Conjunctivitis)? No Information not available 12/08/2016 Have You Recently (within The Last 12 Weeks, Or During A Current ) Traveled To Or Lived In A Zika-affected Area? No Information not available 12/08/2016 Sex: Female Functional Status Question Answer Note LastModified by Organizat ion Details LastModified Time What is your level of alcohol consumption? None Information not available 12/08/2016 Are you currently employed? No Information not available 12/08/2016 Do you have difficulty doing errands alone? No Information not available 12/08/2016 Are you able to care for yourself? Yes Information not available 11/04/2017 What is your occupation? Unemployed [email or web address] Information not available 06/19/2020 Do you have difficulty dressing or bathing? No Information not available 12/08/2016 Do you or have you ever used e-cigarettes or vape? Current user of electronic cigarettes Information not available 11/29/2019 What is your exercise level? None Information not available 12/08/2016 Mental Status Question Answer Note LastModified by Organization D etails LastModified Time Do you have difficulty concentrating, remembering or making decisions? No Information no t available 12/08/2016 Family History Relationship Description Onset Age of this Age Resolved Age Notes LastModified by Organization Details LastModified Time Unspecified Relation Chronic obstructive pulmonary disease [email or web address] Not available 2016 13:15:20 Unspecified Relation Diabetes mellitus [email or web address] Not available 2016 13:15:32 Unspecified Relation Heart disease [email or web address] Not available 2016 13:15:48 Medical History Condition Response Pancreatitis N Other N Atrial Fibrillation N congenital heart disease N Blood Diseases N Hyperthyroidism N Rheumatoid arthritis N Blood Transfusion N Erectile Dysfunction N amputation N Skin Lesions N Depression N Pneumonia N Incontinence N Murmur N Edema N Alzheimer's Disease N Migraine Headaches N Tobacco Abuse N Anxiety Disorder N Hemorrhoids N Obesity Y Vision or Eye Problems N Restless Leg Syndrome N Arthritis N Polyps N Infertility N Carpal Tunnel N Acid Reflux (GERD) N Cancer N Varicosities N Stroke N Tendonitis N Crohn's Disease N Hypercholesterolemia N Skin Cancer N Headaches N Fibromyalgia N Irritable Bowel Syndrome N Anal Fissure N Kidney Disease N Heart Problems N Hospitalizations N Gallstones N Kidney or Bladder Problems N Goiter N Acne Y Eating Disorder N Pena's Esophagus N Hypertriglyceridemia N Constipation N Embolism N Vitamin B12 Deficiency N Deviated Septum N AIDS/HIV N Myocardial Infarction N Asthma N Mitral Valve Disorders N Vertigo N Hepatitis N Thyroid Cancer N Neuropathy N History of DVT N Herniated Disc N Chicken Pox N Von Willebrands Disease N Thrombophilias N Breast Cancer N Hernia N Plantar Fasciitis N Hypothyroidism N Lung Disease N Defects or Inherited Disease N Breast Problem N Ovarian Cyst N Anesthesia Complications N Testosterone Deficiency N Interstitial Cystitis N Congenital Anomalies N Hypoglycemia N Blood clot N Vitamin D Deficiency N Cellulitis N Endometriosis N Bladder or Kidney Problems N Fracture N Schizophrenia N Panic Disorder N Concussion N Spina Bifida N Osteoarthritis N Parkinson's Disease N Disc Protrusion N STI N Esophagitis N Angina N Thyroid Problems N GI Problems N ADD/ADHD N Anemia N Multiple Sclerosis N Abnormal PAP N Lumbago N Mental Illness N Psychiatric Illness N Ovarian Cancer N Diabetes N Degenerative Disc Disease N Seizures/Epilepsy N Syncope N Hyperlipidemia N Insomnia N Eczema N Abuse/Domestic Violence N Attention Deficient Disorder N Dementia N Ulcerative colitis N Cerebrovascular Disease N Depression N Guillain-[place] N Sleep Apnea N Aneurysm N Bronchitis N Heart Disease N Suicidal Ideation N Pre-Eclampsia N Hypertension N Osteoporosis N Gynecological History Statement/Question Response Abnormal Pap Y On BCP's at Conception? N STIs/STDs N HPV Vaccine N Current Control Method Tubal Ligat ion Age at Menarche 11 Age at First Child 20 Sexually Active? Y Date of Last Cervical Culture 06/09/2021 Menses Monthly No Date of Last Pap Smear 06/09/2021 Sexual Problems? N LMP Approximate Obstetrics History GPAL:G 3 P 2 2 0 4 Type Value Multiple Births 1 Full Term 2 Induced 0 Spontaneous 0 Premature 2 Living 4 Ectopics 0 Total 3 Immunizations Vaccine Type Date Status Note Provider Nam e and Address Organization Details Recorded Time Tdap 11/05/2015 completed Not Available [facility] 09/02/2019 02:21:22 Tdap 06/09/2017 completed Not Available [facility] 08/19/2019 03:54:44 Past Encounters Encounter ID Performer Location Encounter Start Date Encounter Closed Date Diagnosis/Indication Diagnosis SNOMED-CT Code Diagnosis ICD10 Code Diagnosis Note [id number] JAYRO Horowitz [employer] [address] [place] [address] [place] [address] 12/08/2016 13:09:12 12/08/2016 13:43:49 Amenorrhea 04922730 N91.2 Urine preg marietta test positive [id number] Z32.01 [id number] JAYRO Coronado [employer] [address] [place] [address] [place] [address] 01/08/2017 09:20:21 01/08/2017 10:53:09 screening 178123110 Z36 Gestation period, 10 weeks [id number] Z3A.10 Routine an tenatal care 685794418 Z34.91 - induced hypertension 75439877 O13.9 Nausea 041248560 R11.0 Dysuria 71231971 R30.0 Nausea and vomiting 1693 2000 R11.2 Supervisio n of high risk with history of previous section done [id number] 9106 O09.521 [id number] Pily Xiao CNM Rufe [employer] [address] [place] [address] [place] [id number] 01/26/2017 13:11:38 01/26/2017 14:23:37 Gestation period, 12 weeks 94801041 Z3A.12 Supervisio n of high risk with history of previous section done 6977790938 9106 O09.891 Maternal drug use 360082 01 P04.49 Maternal o besity syndrome 96013565 O26.01 [id number] Pily Xiao CNM [facility] [employer] [address] [place] [address] [place] [address] 7 03/24/2017 12:47:51 03/24/2017 14:18:09 Gestation period, 20 weeks 97642417 Z3A.20 Screening for Chlamydia trachomatis 288799750 Z11.8 Morbid obesity 842415991 E66.01 Deliveries by 825064677 O82 History of drug abuse 37 0767472 F19.21 - induced hypertension 72914775 O13.9 [id number] Eryn Delgado DO [facility] [employer] [address] [place] [address] [place] [address] 7 04/19/2017 08:32:11 04/19/2017 10:17:40 Maternal obesity syndrome 73227177 O26.01 Maternal drug use 658593 P04.49 Supervisio n of high risk with history of previous section done 1770204129 9106 O09.891 Gestation period, 24 weeks 347010582 Z3A.24 Obesity 518824941 E66.9 screening 2437 89873 Z36 [id number] JAYRO Baez [employer] [address] [place] [address] [place] [address] 7 05/04/2017 15:54:24 05/04/2017 16:38:38 Maternal obesity syndrome 74244396 O26.02 Supervisio n of high risk with history of previous section done 4126648605 9106 O09.892 Maternal drug use 003242 01 P04.49 Gestation period, 26 weeks 98548030 Z3A.26 Low back pain 435561540 M54.5 Ketonuria 377642451 R82. 4 Nausea and vomiting 1693 2000 R11.2 [id number] JAYRO [place] [employer] [address] [place] [address] [place] [address] 7 06/09/2017 11:02:25 06/09/2017 12:05:41 screening 347928237 Z36.9 History of drug abuse 37 7814421 F19.21 Maternal o besity complicating , childbirth and the puerperium, antepartum 7002336048 07 O99.213 Supervisio n of high risk with history of previous section done 9801574637 9106 O09.893 Administra tion of diphtheria, pertussis, and tetanus vaccine 486723853 Z23 Gestation period, 31 weeks 83791869 Z3A.31 [id number] SHARRON Le [employer] [address] [place] [address] [place] [address] 7 06/29/2017 15:08:39 06/29/2017 16:13:02 Abnormal cervical Papanicolaou smear 644714414 R87.619 Will need repeat PAP PP Maternal drug use 048348 01 O99.324 Gestation period, 34 weeks 32089004 Z3A.34 Vaginal discharge 958616 006 N89.8 Maternal o besity complicating , childbirth and the puerperium, antepartum 7585349369 07 O99.213 Supervisio n of high risk with history of previous section done 6542997468 9106 O34.211 Viral screening 38009978 4 Z11.59 High risk care 636399221 O09.93 History of Pre-E with first [id number] DO Ciera Shaver [employer] [address] [place] [address] [place] [address] 7 07/06/2017 08:16:48 07/06/2017 14:03:30 Gestation period, 35 weeks 07605694 Z3A.35 Maternal o besity complicating , childbirth and the puerperium, antepartum 0922885085 07 O99.213 Supervisio n of high risk with history of previous section done 9808798183 9106 O09.893 Maternal drug use 912020 01 P04.49 screening 2437 35977 Z36.9 [id number] MD Ciera Scott [employer] [address] [place] [address] [place] [address] 7 07/09/2017 08:36:39 07/14/2017 15:02:43 Liver function tests outside reference range 058799519 R94.5 Maternal o besity complicating , childbirth and the puerperium, antepartum 5914640133 07 O99.213 Supervisio n of high risk with history of previous section done 8661588520 9106 O09.893 Maternal drug use 289576 01 P04.49 Maternal tobacco use 427 102843 O99.333 Gestation period, 35 weeks 49426821 Z3A.35 Venereal d isease screening 783429500 Z11.3 [id number] MD Ciera Scott [employer] [address] [place] [address] [place] [address] 7 07/15/2017 13:18:44 07/15/2017 15:38:41 Liver function tests outside reference range 799709880 R94.5 Maternal o besity complicating , childbirth and the puerperium, antepartum 9540280354 07 O99.213 Maternal tobacco use 427 509877 O99.333 Supervisio n of high risk with history of previous section done 6329563763 9106 O09.893 Maternal drug use 268823 P04.49 Gestation period, 36 weeks 07138855 Z3A.36 [id number] Pily Xiao CNM [facility] [employer] [address] [place] [address] [place] [address] 7 07/21/2017 15:01:04 07/21/2017 16:02:58 Deliveries by 563067470 O82 Maternal tobacco use 427 719202 O99.333 Supervisio n of high risk with history of previous section done 2274427209 9106 O09.892 Gestation period, 37 weeks 08657872 Z3A.37 Drug dependence 81516491 9 F19.20 Morbid obesity 991444838 E66.01 [id number] Nina Dodd CNM [facility] [employer] [address] [place] [address] [place] [address] 7 07/27/2017 10:50:47 07/27/2017 13:50:40 Maternal obesity complicating , childbirth and the puerperium, antepartum 4951598439 07 O99.213 Supervisio n of high risk with history of previous section done 3161321640 9106 O09.893 History of drug abuse 37 2707722 F19.21 Gestation period, 38 weeks 18463175 Z3A.38 screening 2437 86258 Z36.9 Cholestasi s of 651744514 O26.782 [id number] Rebecca Bower MD [address] [place] [address] 7 08/30/2017 10:40:28 08/30/2017 12:28:56 Bronchospasm 7868240 J98.01 Allergic rhinitis 887192 04 J30.9 has zyrtec- restart Generalize d anxiety disorder 51253910 F41.1 Tobacco user 664168820 Z 72.0 [id number] Marietta Pond MD [address] [place] [address] 7 09/27/2017 13:00:49 09/27/2017 14:07:48 Acne vulgaris 05318929 L70.0 Generalize d anxiety disorder 91636314 F41.1 Tobacco user 036129708 Z 72.0 Body mass index 40+ - severely obese 069617793 Z68.41 [id number] Marietta Pond MD [address] [place] [address] 7 11/04/2017 10:56:37 11/04/2017 12:15:32 Endocrine/metabolic screening 054170358 Z13.228 Near syncope 879996018 R 55 Tobacco user 137820198 Z 72.0 [id number] Olinda Rodrigez APRN [facility] [address] [place] [address] 4 01/17/2018 14:04:31 01/17/2018 15:35:07 Low back pain 087268655 M54.5 Body mass index 40+ - severely obese 237534791 Z68.41 [id number] SHARRON Leville [employer] [facility] [place] [address] 7 05/06/2018 13:14:46 05/06/2018 13:58:08 Abnormal cervical Papanicolaou smear 256828563 R87.619 03/24/17 ascus pos hpv, Did not return for care Amenorrhea 58431832 N91. 2 Discussed proceeding with bloodwork today. If hcg is negative, will proceed with Provera 10 x 10.Pt to call office if no withdrawal bleeding is noted 10-14 days after finishing medication . Vaginal discharge 043361 006 N89.8 Reviewed the various causes of vaginal discharge and vaginitis symptoms, including both infectious (STD's, BV, yeast, others) and noninfecti ous (physiolog ic d/c, irritants/ allergens, DIV, others) causes. Reviewed good vulvar/vag inal hygiene and ways to reduce symptoms. Advised to call if treatment is not helpful or if symptoms persist or recur. Trichomonal vaginitis 27 8781578 A59.00 [id number] Nina Dodd CNM [facility] [employer] [address] [place] [address] [place] [address] 7 11/29/2019 11:13:16 11/29/2019 12:21:49 Maternal drug use 41269519 O99.320 Maternal tobacco use 427 558032 F17.200 Routine an tenatal care 516022350 Z34.90 Obesity 397424292 E66.9 screening 2437 70599 Z36.9 detection examination 62355836 Z32.01 Morning sickness 0271657 6 O21.9 Generalize d anxiety disorder 07627807 F41.1 Vaginal discharge 197667 006 N89.8 High risk 4720 0007 O09.90 [id number] MD Ciera Robledo [employer] [address] [place] [address] [place] [address] 7 12/14/2019 15:09:06 12/14/2019 15:51:23 Maternal tobacco use 461046326 F17.200 Maternal drug use 093415 01 O99.320 27795681 Z33.1 High risk 4720 0007 O09.90 Twin 74958435 O30.009 Nausea and vomiting 1693 2000 R11.2 Gestation period, 12 weeks 70375437 Z3A.12 [id number] Marlee Godoy MD [facility] [employer] [address] [place] [address] [place] [address] 7 01/23/2020 08:08:40 01/23/2020 10:27:08 Maternal obesity complicating , childbirth and the puerperium, antepartum 6956046040 07 O99.213 Maternal tobacco use 427 323902 O99.333 Supervisio n of high risk with history of previous section done 0179818572 9106 O09.893 O34.211 Twin 84993266 O30.042 Gestation period, 18 weeks 39043154 Z3A.18 screening 2437 54896 Z36.2 Anxiety 02026566 F41.9 Nausea 110712219 R11.0 Past pregn joseph history of cholestasis in 1155899854 4133725 Z87.59 needs lft/bile acids with 28 weeks labs Drug depen dence in mother complicating , childbirth AND/OR puerperium 53261551 F19.20 O99.169 [id number] Alexei Bowen MD [facility] [employer] [address] [place] [address] [place] [address] 7 02/08/2020 12:38:22 02/08/2020 14:40:12 Drug dependence in mother complicating , childbirth AND/OR puerperium 12595317 O99.324 Past pregn joseph history of cholestasis in 6904072670 3505681 Z87.59 Supervisio n of high risk with history of previous section done 0450203638 9106 O09.893 Twin 28005444 O30.009 Gestation period, 20 weeks 55408016 Z3A.20 Infection screening 2437 31548 Z11.3 Z11.8 Screening for malignant neoplasm of cervix 261284724 Z12.4 Z11.3 Body mass index 40+ - severely obese 958252783 Z68.41 Anxiety 38458006 F41.9 [id number] MD Johanny [place] [employer] [address] [place] [address] [place] [address] 7 03/07/2020 12:51:06 03/07/2020 16:12:26 Drug dependence in mother complicating , childbirth AND/OR puerperium 55083028 O99.324 Past pregn joseph history of cholestasis in 0057639347 7637906 Z87.59 Supervisio n of high risk with history of previous section done 4431336122 9106 O09.893 Twin 31934353 O30.009 Body mass index 40+ - severely obese 310023314 Z68.41 Anxiety 19546784 F41.9 screening 2437 65299 Z36.9 Gestation period, 24 weeks 544545705 Z3A.24 [id number] MD Ciera Oh [employer] [address] [place] [address] [place] [address] 7 05/01/2020 14:15:18 05/01/2020 16:50:26 Drug dependence in mother complicating , childbirth AND/OR puerperium 17407843 O99.324 Past pregn joseph history of cholestasis in 0348961818 3869899 Z87.59 Supervisio n of high risk with history of previous section done 5120111951 9106 O09.893 Twin 32989870 O30.009 Body mass index 40+ - severely obese 827781369 Z68.41 Anxiety 59500372 F41.9 screening 2437 77848 Z36.9 Gestation period, 32 weeks 6197026 Z3A.32 pr emature rupture of membranes 441343903 O42.158 [id number] MD Ciera Oh [employer] [address] [place] [address] [place] [address] 7 06/11/2020 16:05:26 06/11/2020 16:53:18 state 90480594 Z39.2 w ound disruption 548684962 O90.0 wet/dry change dressing twice daily. Home health referral pending if mother can not assist [id number] DO Ciera Shaver [employer] [address] [place] [address] [place] [address] 7 06/18/2020 16:20:43 06/18/2020 16:54:54 Surgical follow-up 319340159 Z09 Candidiasis of skin 4988 3006 B37.2 [id number] MD Ciera Mcmahon [employer] [address] [facility] [place] [address] 06/09/2021 11:04:17 06/09/2021 13:04:02 Chronic pelvic pain of female 403013770 R10.2 Problem for several years, getting progressiv dannielle worse, daily pain despite amenorrhea but worse when she does bleed or try to have sex. 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 No acute sonographi c changes.. RN [employer] differenti al diagnosis would include endometrio sis or adenomyosi s or even a possible chronic endometrit is following delivery for chorioamni onitis. Will treat empiricall y with minocyclin e and empiricall y start cyclic OCs pending further evaluation . Check UA and culture for evaluation , and advising GI referral due to rectal bleeding component Oligomenorrhea 49735097 N91.5 patient left before labs drawn, plans to return this week for labschroni c oligo ovulation. Reviewed risk for worsening DUB and or endometria l hyperplasi a/neoplasi a the remains untreated. advised will need long-term progestin treatment some form. Will start with CO C for now Dyspareunia 99282678 N94 .10 Painless r ectal bleeding 482977571 K62.5 Abnormal urine odor 8769 003 R82.90 unable to give urine sample. declined cath, follow up this week for sample Weight gain 9048340 R63. 5 70 lb in the last year Screening for malignant neoplasm of cervix 138870987 Z12.4 Z11.3 Health Concerns Section Related Observation LastModified by Organization Detai ls LastModified Time None Recorded Concern Status LastModified by Organization Details LastModified Time None Recorded Advance Directives Directive N: Payers Insurance Date Sequence Insurance Name Policy Number Policy Noonan Covered Member ID Noonan Member ID Guarantor Name 08/11/2024 1 [employer] [facility] (MEDICAID HMO) Therese Chaves [id number] Therese Chaves 01/17/2024 1 [employer] [facility] (MEDICAID HMO) Therese Chaves [id number] Therese Chaves 01/17/2024 2 [place] [place] FFS/TRADITION AL Therese Chaves [id number] Therese Chaves 08/04/2024 [place] Therese Chaves [id number] Therese Chaves 01/17/2024 1 [employer] (MEDICAID REPLACEMENT - HMO) MEDICAID Therese Chaves [id number] Therese Chaves Notes Date Note Type Note Provider Name and Address Organization Details Recorded Time 05/01/2020 text/html Pt states she gimenez s been in [place] at the [facility] for 33 days. pt states she kept telling them she thinks something is wrong and they've been ignoring her so she came home. pt is having bloody discharge. Started with mucus d/c 3 nights ago. 2 nights ago started leaking fluid. Signed herself out of rehab and came here. No f/c/n/v. Feels like the babies aren't moving as much. Eating and drinking. Exam here with + Valsalva and Pool of blood-tinged amniotic fluid. Benign abdomen. U/S with normal cervical length and adequate fluid. [place] Leung - [facility] 05/01/2020 16:16:08 06/11/2020 text/html VisitReported bypatient.Onset/Last g:date of delivery: (05/08/2020); Baby's name: (Dane 3.2lbs Monique 3.4lbs); Baby's weight lbs: ___ ounces; Delivered by: ([place]) Quality:primary LST C/S (Twins, . w/ Tubal ligation) Context:feeding choice: breast and bottle; good support from partner/family Associated Symptoms:no abnormal bleeding; no pelvic pain; no constipation; no fecal incontinence; no dysuria; no urinary incontinence; no fever; no problems; no mastitis; c/o of yellow drainage from incision. [place] Leung - [facility] 06/11/2020 16:45:55 06/18/2020 text/html Patient presents today for acute post operative visit from section# Total Laparoscopic Hysterectomy and Cystoscopy Total Laparoscopic Hystectomy with Bilateral Salpingo-Oophorectomy and Cystoscopy Hysterosco py Dilation and Curettage Suction Dilation and Curettage Loop Electrosurgical Excision Procedure Excision of labial cyst Laparoscopic Bilateral Salpingectomy Diagnos tic Laparoscopy Marsupili zation of Bartholin gland Abscess TVT TOT Excis ion of Bartholin gland Cyst performed at . She presents for followup on incision issues. Reports her mom packs her incision for her and lately it has gotten more painful. Eryn Delgado, DO [address], [place], [address], [place] - [facility] 06/18/2020 17:29:14 06/09/2021 text/html This is 25-year- old 3 para 3 LC 4, x3, status post tubal ligation with last 1 year ago, for twins withPPROM chorioamnionitis. Last seen here for wound infection follow-up 1 year ago at . Babies are doing well She is complaining of chronic pelvic pain. She states the pain actually started before she got with twins but is gotten worse significantly since her delivery. She is in pain almost daily left greater than right in the pelvis. It has been as bad as 10 out of 10 as recently as yesterday where she cannot bear it, can you get out of bed, was that bad 2 weeks ago when she called for this appointment. States is about 4-6 out of 10 currently.She denies any dysuria or urinary urgency. She does note urinary odor. she states normally timed bowel movements but admits painless rectal bleeding of varying amounts over the last month sometimes mixed with stool water sometimes mixed with stool but always cannot touch rectum see blood after bowel movement. She has never had any GI evaluation. No family history of cancers. Also note to have oligiomenorrhea. Last menstrual cycle estimated 08/2020. States usually will only have maybe 1 peroid a year.. She goes on to state she will have a sporadic bloody discharge most of the days of the month including enough blood on 1 day about a month ago to saturate through clothing. She does admit that when she has had this heavier bleeding her pain is even worse. She denies any galactorrhea. She states she did have something that looked like a sac of tissue less than an inch in size pass about a month ago. She is not taken any home tests. She has moderate dyspareunia. States she has had oligomenorrhea since early 20s but somehow managed to get with all 3 pregnancies without any assistance including dizygotic twins most recently. She has been chronically obese but has gained 70 pounds since last delivery. As far she knows she is not diabetic or hypothyroid. She had never had any consistent treatment for oligo menorrhea. She called in October 2020 stating she was supposed to have a follow-up ultrasound for those tumors that were found during her son's 2016. Review of multiple ultrasounds during her 2016 and 2019 pregnancies failed to show any description of adnexal or uterine pathology.Ultrasound was scheduled as part of this visit. Patient that she hates coming to the doctor and only comes when she has to. She is behind on preventive care. after review of issue she is agreeable to proceed with laparoscopy hysteroscopy D&C next available which will be for later this month. She was unable to stay long enough to confirm date with Tricia due to 1 of the twins having a fit with her mother. She states she will return to get his urine and blood samples and get surgical dates confirmed Marlee Godoy MD [address], [address], [place] - [facility] 06/09/2021 20:27:22 OBGyn Episode Ob Episode Information Episode Created Date Number of Fetuses Patient Bloodtype Patient rh Status Prepregnancy Weight lbs Domestic Partner Domestic Partner Phone Father Name Net Finisher Status 12/09/19 17 1 CLOSED Fetus Data First Name Last Name Admitted to NICU Weight (g) Sex Living Outcome Pediatric Complications Fetus ID Race Codes Race Delivery Type Full Term [id number] Danial Calculation Initial Danial Date Initial Exam Date Initial Exam Provider Initial Ultrasound Date Last Menstrual Period Date Ultra Sound Weeks Gestation 0 Eighteen To Twenty Week Danial Update Ultra Sound Date Fundal Height At Umbil Quickening Date Ultra Sound Latest Weeks Gestation Final Danial Confirmed By Final Danial Confirmed Date Final Danial Date Ultra Sound Latest Days Gestation 0 0 Menstrual History Last Menstrual Date Menses Monthly On Bcp Conception Prior Menses Frequency Hcg Plus Date Menarche Onset Age Delivery Information Delivery Date Delivery Type Labor Anesthesia Weeks Gestation Incision Type Labor Labor Length Hrs Delivered By Post Complications Tubal Sterilization Discharge Date Comments 6 Regional-Sp inal 40 Discharge Information Feeding Method Contraceptive Method Maternal HG B and HCT Levels Ob Episode Information Episode Created Date Number of Fetuses Patient Bloodtype Patient rh Status Prepregnancy Weight lbs Domestic Partner Domestic Partner Phone Father Name Net Finisher Status 11/29/19 20 2 A Positive 251 Anil Bobby (31) [facility] CLOSED Fetus Data First Name Last Name Admitted to NICU Weight (g) Sex Living Outcome Pediatric Complications Fetus ID Race Codes Race Delivery Type true F Prematur e 73247 true F Prematur e 33070 Problems Problem Notes Lives [facility]; Work-Specia l Touch5/16 C/S @ 40 wks 6#6oz BPP 2/8 and decreased FM SG12/17 C/S @ 38+3 wks 7# Cholestasis (bile acid 12.4) /mild lft changes LLS (nl GB US pp)Pt needs OBPE still. Declined MULTIPLE times. Aware needs @ 38 week visitULTRASOUNDS: 12/13: Dating US shows twins! Lambda sign seen. Suspect Di Di Twin . Largest measures 12+5 wk. Smallest 11+6. Will use DANIAL 06/22/2020 off largest as to not miss any IUGR! 01/22: 16 weeks A (Inferior) Trans/202g,17+4; B(superior), Trans 236 g, 18+2- concordant (14%), /appropr growth, Post placenta, Di/di per membranes; fu 02/07 [facility]/ls79: 20 wk Jeannie US Level II w [facility]: Di, Di; DANIAL both consistent; limited jeannie but wnl so far; repeat 4 weeks; start baby ASA (Dr. Joyner)/DRW8/6: 25 wk [facility] A: 41%tile, B 49%tile, normal MVP x 2. F/u in 4 wk with [facility]//KRA10/8: Suspect IUGR with elevated UAD of Twin A. Problem Name Start Date End Date Resolution Snomed Code Not e Insufficient care 04/04/2020 [id number] Drug dependence in mother complicating , childbirth AND/OR puerperium 01/23/2020 64527848 [ ] uds q TM[ ] changing to pursue care at 18 wk Used Pain pills and heroin Snorted. [facility] 8[facility] BID- [facility] positive for Subutex and Fentanyl Past history of cholestasis in 01/23/2020 [id number] { ] consid er lft/bile acids with 28 wk lab/-mild LFT changes/BA=12.4 (NEVER HAD pruritus SX) , neg Hepatitis panel and neg RUQ US PP, LFT normalized by delivery Anxiety 01/23/2020 83743056 since sangita n, multiple med trials in the past-using illicit drugs to self medicate at onset of , worsening, vistaril rxd but not enough, adivse discuss with mental health care providers along with substance counseling/Rx Active or passive immunization 997024955 [x] Flu vaccine-Declined[ ] TDAP @ 30 wks Maternal obesity complicating , childbirth and the puerperium, antepartum 12/28/2019 927848383792 BMI 43.8; A1C=5.1% screening 366717051 Declined CF, FTS, [id number], QUAD 01/22 Supervision of high risk with history of previous section done [id number] LTCS x 2 Plan s Rpt with TL Infection by Trichomonas [id number] Rx flagyl provided 12/06[ ] MANI with OBPE Maternal tobacco use 07/09/2017 316692003 1 ppd: urged to quit Twin 13025582 DI/DI per 12 wk scan' Baby ASAFolic Acid 1 mg daily Danial Calculation Initial Danial Date Initial Exam Date Initial Exam Provider Initial Ultrasound Date Last Menstrual Period Date Ultra Sound Weeks Gestation 06/22/2020 11/29/2019 12/14/2019 12 Eighteen To Twenty Week Danial Update Ultra Sound Date Fundal Height At Umbil Quickening Date Ultra Sound Latest Weeks Gestation Final Danial Confirmed By Final Danial Confirmed Date Final Danial Date Ultra Sound Latest Days Gestation 0 [email or web address] 12/14/2019 06/22/20 20 0 Pre- Flowsheet Flowsheet Date 11/29/2019 Mcbride Score Blood Edema Fundus Height Fundus Units Glucose Ketones Leukocytes Nitrite Labor Signs Protein Cervic Dilation Cervic Effacement Cervic Station neg none none negative trace Negative none neg Type Weight in lbs Pre/Post Dialysis Refused Weight 251.45364166856 BP Diastolic BP Location Tested BP Systolic BP Type 84 128 sitting Fetus Heart Rate Present Fetus Movement A No Comments Has had discharge that has a n odor. Did take percocet for abd pain before she found out she was . She thinks she is about 5 wks . Still having abd pain, hurts so bad makes her sick Has not had a regular period in over a year. She now has custody of both her children. Reports her anxiety is really bad, her kids fight constantly. She has multiple open areas on her face and arms she states she picks when she is anxious. mdr//Reports LMP was over a year ago, but knows she had sex on October 26 or . Positive UPT 11/17/19. Unplanned . Hx of drug use-No IV use, Used heroin and pills by snorting. Subutex 8mg BID through [facility]. PN labs today. C/O green vaginal discharge. One Swab obtained. Requested more Phenergan after she Left. RTC 1 wk with dating scan. Flowsheet Date 11/30/2019 Mcbride Score Blood Edema Fundus Height Fundus Units Glucose Ketones Leukocytes Nitrite Labor Signs Protein Cervic Dilation Cervic Effacement Cervic Station Type Weight in lbs Pre/Post Dialysis Refused BP Diastolic BP Location Tested BP Systolic BP Type Fetus Heart Rate Present Fetus Movement Comments She had told the nurse yeste reyes that she hurt all over her abd but she did not mention to me at the visit. I called and left a message. When she called back I was in with a patient but now says her pain is lower abd. I would recommend that we go ahead and get an US to determine that she had IUP. I call 2 different numbers and left a message to call. Flowsheet Date 12/14/2019 Mcbride Score Blood Edema Fundus Height Fundus Units Glucose Ketones Leukocytes Nitrite Labor Signs Protein Cervic Dilation Cervic Effacement Cervic Station neg none negative none Negative neg Type Weight in lbs Pre/Post Dialysis Refused Weight 244.793621685106 BP Diastolic BP Location Tested BP Systolic BP Type 72 118 sitting Fetus Heart Rate Present A 172 Present B 169 Present Fetus Movement Comments No vb, no lof, neg leuk, neg nits, no complaints/BW///Therese is shocked to see she is with twins! DANIAL 06/22/2020 based off larger twin. Lambda sign seen, so suspect Di Di. C/o N/V and wants refill on Phenergan. Given and also encouraged B6. Discussed UDS + with fentanyl in addition to subutex. She says she was taking whatever her friends gave her. Discouraged this. Already following with [facility]. Reports she called and already heard her results of the trichomonas and BV and taking her flagyl. Discussed 1mg folic acid supplementation daily, starting Baby ASA< [facility] referral for 20 week US, and q4 week growth US. REturn in 2 weeks for OBPE, then at 16 weeks for repeat growth. KRA Flowsheet Date 01/15/2020 Mcbride Score Blood Edema Fundus Height Fundus Units Glucose Ketones Leukocytes Nitrite Labor Signs Protein Cervic Dilation Cervic Effacement Cervic Station Type Weight in lbs Pre/Post Dialysis Refused BP Diastolic BP Location Tested BP Systolic BP Type Fetus Heart Rate Present Fetus Movement Comments Received call from patient marko escalera to switch to our suboxone clinic. Educated pt regarding [facility] program and services being provided via telehealth. Pt agreeable and referral submitted. Reports transportation issues with clinic in [place], [place]. abr/ Flowsheet Date 01/23/2020 Mcbride Score Blood Edema Fundus Height Fundus Units Glucose Ketones Leukocytes Nitrite Labor Signs Protein Cervic Dilation Cervic Effacement Cervic Station neg none 25 cm none negative none Negative neg Type Weight in lbs Pre/Post Dialysis Refused Weight 257.271938248738 BP Diastolic BP Location Tested BP Systolic BP Type 68 120 Fetus Heart Rate Present A Present B Present Fetus Movement A Yes B Yes Comments pt states no VB, LOF. stomac h pains. pt states she is having sever anxiety to the point of vomiting and its causing her to chain smoke.//EV ; phenergan helps some but ran out (using bid maintenance)- helps with nausea/Vomiting assoc with smells, not with anxiety. vistaril was using 2 doses/day x 3 weeks., not helping with anxiety- gets shaky and N/V from this, even phenergan not helping that, ran out phenergan and used dramamine otc this AM. Refill Phenergan and encourage longer-term Vistaril at 4 times daily. Prepregnancy significant anxiety since age 15-worsening as she is getting older and now with children at home making it worse.. Multiple medications tried, has done best with BuSpar in the past, no recent use. [facility] and prescribing [facility] and planning to go today/late for visit. Contact was made with [facility] but patient awaiting follow-up call x1 week. still wants to transition care to this, needs counseling both with substance and underlying anxiety, needs psychiatric prescriber for anxiety as well. Note to Trina to try to help facilitate this transition. Note to be faxed to [facility] for visit today stating any anxiety meds other than benzodiazepines would be acceptable in but advised on maintaining Vistaril as baseline. Denies any illicit drug use and admits to consistent Subutex use since last here. Smoking greater than 2 packs/day, -how she deals with anxiety -counseled. Ultrasound today reassuring growth/viability x2. Discussed screening. Declined serum screens for aneuploidy and spina bifida and CF would just worry too much and cannot do anything anyway and, they told me it was only 50-50 ; does want remainder of anatomy screened with ultrasound however. RTO as sched 02/07 ga /jeannie level II /ls noted after patient left she had no showed OBPE 5 28, 6 12 and rescheduled 6 18 visits, and today's visit NOT labeled as OB physical on schedule and not done. She did get cervical cultures 4 29 with history due to symptoms of discharge then but STILL NEEDS OBPE! Flowsheet Date 02/08/2020 Mcbride Score Blood Edema Fundus Height Fundus Units Glucose Ketones Leukocytes Nitrite Labor Signs Protein Cervic Dilation Cervic Effacement Cervic Station neg none 24 cm none negative none Negative neg Type Weight in lbs Pre/Post Dialysis Refused Weight 256.749865528267 BP Diastolic BP Location Tested BP Systolic BP Type 62 116 Fetus Heart Rate Present A 158 B 147 Fetus Movement A No B No Comments no VB, LOF, CTX. pt is start ing to feel the babies move. pt states if she does get a relief from anxiety soon she is taking herself back to rehab states anxiety so bad her chest hurts all the time. pt wants to wait until next visit for OBPE due to nerves today. //EVUS per [facility] Telemed w Dr. Joyner: AGA, twins, di/di; wants counseling w Lorenzo Castillo or [facility] and [facility] for sub[facility]ex. Will start ASA qd/DRW Flowsheet Date 02/12/2020 Mcbride Score Blood Edema Fundus Height Fundus Units Glucose Ketones Leukocytes Nitrite Labor Signs Protein Cervic Dilation Cervic Effacement Cervic Station Type Weight in lbs Pre/Post Dialysis Refused BP Diastolic BP Location Tested BP Systolic BP Type Fetus Heart Rate Present Fetus Movement Comments PLEASE GIVE PT THE SMALL PUR SUECARE PRINT WITH JAMIN AND TRINA'S # THAT WERE HANDED OUT AT THE LAST PROVIDER MEETING. PLEASE HAND RA OR SHAILESH'S CARD WITH THEIR NUMBER LISTED. THE PATIENT WILL NOT ANSWER OUR CALLS! SHE NEEDS TO CALL TO SCHEDULE THESE APPOINTMENTS. ABR/ Flowsheet Date 03/07/2020 Mcbride Score Blood Edema Fundus Height Fundus Units Glucose Ketones Leukocytes Nitrite Labor Signs Protein Cervic Dilation Cervic Effacement Cervic Station neg none negative none Negative neg Type Weight in lbs Pre/Post Dialysis Refused Weight 255.399779106106 BP Diastolic BP Location Tested BP Systolic BP Type 66 112 sitting Fetus Heart Rate Present A Present B Present Fetus Movement Comments No vb, no lof, neg leuk,, ne g nits, no complaints//BW///Given # to call Trina and Jamin. Expressed how very important this is! [facility] visit today shows AGA x 2. They want f/u in 4 weeks. Declines exam today. Aware will need it next appt w/OBPE especially for MANI for trichomonas! Flowsheet Date 05/01/2020 Mcbride Score Blood Edema Fundus Height Fundus Units Glucose Ketones Leukocytes Nitrite Labor Signs Protein Cervic Dilation Cervic Effacement Cervic Station 3+ none none negative none Negative Other (see comments ) neg Type Weight in lbs Pre/Post Dialysis Refused Weight 256.188347854690 BP Diastolic BP Location Tested BP Systolic BP Type 78 110 Fetus Heart Rate Present Fetus Movement Comments pt states she has been in [place] at the care center for 33 days. pt states she kept telling them she thinks something is wrong and they've been ignoring her so she came home. pt is having bloody discharge. //EV As above. Started with mucus d/c 3 nights ago. 2 nights ago started leaking fluid. Signed herself out of rehab and came here. No f/c/n/v. Feels like the babies aren't moving as much. Eating and drinking. Exam here with + Valsalva and Pool of blood-tinged amniotic fluid. Benign abdomen. U/S with normal cervical length and adequate fluid. /MJS Flowsheet Date 05/02/2020 Mcbride Score Blood Edema Fundus Height Fundus Units Glucose Ketones Leukocytes Nitrite Labor Signs Protein Cervic Dilation Cervic Effacement Cervic Station Type Weight in lbs Pre/Post Dialysis Refused BP Diastolic BP Location Tested BP Systolic BP Type Fetus Heart Rate Present Fetus Movement Comments Transferred to with PPROM . KRA Flowsheet Date 06/11/2020 Mcbride Score Blood Edema Fundus Height Fundus Units Glucose Ketones Leukocytes Nitrite Labor Signs Protein Cervic Dilation Cervic Effacement Cervic Station Type Weight in lbs Pre/Post Dialysis Refused Weight 250.999590910975 BP Diastolic BP Location Tested BP Systolic BP Type Fetus Heart Rate Present Fetus Movement Comments Flowsheet Date 06/18/2020 Mcbride Score Blood Edema Fundus Height Fundus Units Glucose Ketones Leukocytes Nitrite Labor Signs Protein Cervic Dilation Cervic Effacement Cervic Station Type Weight in lbs Pre/Post Dialysis Refused With clothes 255.203548688133 BP Diastolic BP Location Tested BP Systolic BP Type 70 114 sitting Fetus Heart Rate Present Fetus Movement Comments Menstrual History Last Menstrual Date Menses Monthly On Bcp Conception Prior Menses Frequency Hcg Plus Date Menarche Onset Age false Genetic Screening And Infection History Question Response Note Patient's Age Will Be 35 Yea rs Or Older At Estimated Date of Delivery false Thalassemia (Bahamian, Hong Konger, Mediterranean, Or Background): MCV < 80 false Neural Tube Defect (Meningomyelocele, Spina Bifi da, Or Anencephaly) false Congenital Heart Defect false Down Syndrome false Jack-Sachs (eg, Latter-Day, Cajun, Burmese-Vietnamese) f alse Katherine Disease false Sickle Cell Disease Or Trait () false Hemophilia Or Other Blood Disorders false Muscular Dystrophy false Cystic Fibrosis false Aniceto's Chorea false Mental Retardation/Autism false If Yes, Was Person Tested For Fragile X? false Other Inherited Genetic Or Chromosomal Disorder false Maternal Metabolic Disorder (eg, Type 1 Diabetes , PKU) false Patient Or Baby's Father Had A Child With Defects Not Listed Above false Recurrent Loss, Or A Stillbirth false Medications (including Suppl ements, Vitamins, Herbs, OTC Drugs), Illicit/Recreational Drugs, Alcohol true subutex If Yes, Agent(s) And Strength/Dosage false Any Other Genetic History false Live With Someone With TB Or Exposed To TB false Patient Or Partner Has History Of Genital Herpes false Rash Or Viral Illness Since Last Menstrual Perio d false History Of STD, Gonorrhea, Chlamydia, HPV, Syphi lis true trich Other Infection History false History of HIV false History of Hepatitis false Prior GBS-infected child false Recent Travel Outside of Country false Plans and Education First Trimester Discussed Date Discussion Item Discussion Note Discuss ed By 11/29/2019 Desire for unplanned 11/29/2019 Alcohol aware 11/29/2019 Illicit/recreational drugs aware m ring4 11/29/2019 Nutrition 11/29/2019 Weight gain counseling mring 4 11/29/2019 Intimate Partner Violence mr ing4 11/29/2019 Unstable Housing 11/29/2019 Use of any medicatio ns (including supplements, vitamins, herbs, or OTC drugs) aware 11/29/2019 Avoidance of saunas or hot tubs aware 11/29/2019 Indications for ultrasonography 11/29/2019 Comminucation Barriers mring 4 11/29/2019 Anticipated course o f care aware 11/29/2019 Toxoplasmosis precau tions (cats/raw meat) aware 11/29/2019 Sexual activity 11/29/2019 Exercise 11/29/2019 Tobacco/smoking cess ation counseling (ask, advise, assess, assist, and arrange) aware 11/29/2019 Barriers to Care 11/29/2019 Environmental/work hazards m ring4 11/29/2019 Depression/Anxiety ( should be performed at least once during period) 11/29/2019 WIC/Hands Referral encouraged 11/29/2019 Nutrition counseling ; special diet; dietary precautions (mercury, listeriosis) 11/29/2019 Dental Care / Refer to Dentist A lavell. Has 2 bad teeth she needs to go see them. Encouraged to go 11/29/2019 Seat belt use yes 11/29/2019 Childbirth classes/h ospital facilities aware 11/29/2019 aware 11/29/2019 Screening for aneuploidy mri ng4 Second Trimester Discussed Date Discussion Item Discussion Note Discuss ed By 11/29/2019 Selecting a [facility] Care Provider 11/29/2019 Care Planning mri ng4 11/29/2019 Depression/Anxiety ( should be performed at least once during period) 11/29/2019 Intimate Partner Violence mr ing4 11/29/[address] anning & Contraception tubal with c/s 11/29/2019 Signs and Symptoms of Labor 11/29/2019 Tobacco Cessation Co unseling (ask, advise, assess, assist, & arrange) Third Trimester Discussed Date Discussion Item Discussion Note Discuss ed By 11/29/2019 Labor Support Person(s) Mom (Shelbi Toll e) 11/29/2019 Feeding Intention bottle mri ng4 11/29/2019 Labor Signs 11/29/2019 Intimate Partner Violence mr ing4 11/29/2019 Pain Management Plans spinal 11/29/2019 Movement Monitoring mr ing4 11/29/2019 Cervical Ripening/La bor Induction Counseling 11/29/2019 Trial of Labor Counseling 11/29/2019 Circumcision Preference yes mrin g4 11/29/2019 Signs and Symptoms of Preeclampsia 11/29/2019 [facility] Education (N ewborn screening, immunizations, jaundice, SIDS/Safe Sleeping, Car Seat) 11/29/2019 Depression 11/29/2019 Depression/Anxiety ( should be performed at least once during period) 11/29/2019 Postterm Counseling 11/29/2019 Feeding bottle 11/29/2019 Family Medical Leave or Disabilty Forms 11/29/2019 Tobacco Cessation Co unseling (ask, advise, assess, assist, & arrange) Delivery Information Delivery Date Delivery Type Labor Anesthesia Weeks Gestation Incision Type Labor Labor Length Hrs Delivered By Post Complications Tubal Sterilization Discharge Date Comments 0 Sponta neous 33.4 true true [facility] delivery. Maximilian twin. PPROM. rpt with bilateral tubal ligation Discharge Information Feeding Method Contraceptive Method Maternal HG B and HCT Levels Tubal Ob Episode Information Episode Created Date Number of Fetuses Patient Bloodtype Patient rh Status Prepregnancy Weight lbs Domestic Partner Domestic Partner Phone Father Name Net Finisher Status 01/09/20 17 1 A Positive [address] CLOSED Fetus Data First Name Last Name Admitted to NICU Weight (g) Sex Living Outcome Pediatric Complications Fetus ID Race Codes Race Delivery Type 3175.14 4 M true Full Term 5304 Problems Problem Notes Pre E w 12/2015 preg. PreE la bs 01/08/17: Prot 389, uric acid/plts/liver NL, but UTI also, recollect @ next visit - repeated on 03/24 - Spot Prot 414, uric acid/plts/Liver Normal. Repeat at 34 wk: Pro/Creat 277, Plts 414, ALT 80, AST 47, Alkaline Phos 396, Hep. Panel Neg; Bile acids: drawn 07-09-17; Repeat Hepatitis Panel @ 36 weeks: Different FOB w this not involved.- 12/15 C/S per SG for FTP 6#6oz; no custody of 16 mo old d/t relative reported she was on drugs to [employer]- son went to her GM and pt has to go to NA meetings,take parenting classes, and have random drug screens before she can get him back.- + UDS pos x 2; 06/09/17 on Subutex 8 mg QD - 34 wk US for growth and MILADYS OK per [facility]- Twice Wkly NSTs Problem Name Start Date End Date Resolution Snomed Code Not e Cholestasis 13161931 Maternal drug use 01/09/2017 [id number] U ds pos norfentanylUDS 04/19: + for buprenorphine, acetaminophen-ct06/09- taking Subutex 8 mg QD. screening 04/19/2017 [id number] 24wk GA/jeannie - complete, anterior placenta, transverse, male, enlarged posterior fossa - [facility] consult/[facility] - [facility] 05/06 - normal intracranial anatomy - recommend f/u 8 weeks./SMODeclined FTSDeclined CF Deliveries by [id number] Supervision of high risk with history of previous section done [id number] Prior c/s for FTP in labor. Plans for rpt C/S with possible TL Abnormal cervical Papanicolaou smear 03/24/2017 [id number] ASCUS + H PV Liver function tests outside reference range 07/02/2017 [id number] ALT 80, AST 47, Alkaline Phos 396, - Needs - Bile Acids____ and RUQ U/S_-WNL at hosp 07/28/17___, Start twice wkly NST Active or passive immunization [id number] Declined Flu vaccineTDAP given Maternal obesity complicating , childbirth and the puerperium, antepartum 06/29/2017 [id number] BMI 45- needs e maricarmen 1 hr gtt. 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 [id number] Needs treated in Labor Danial Calculation Initial Danial Date Initial Exam Date Initial Exam Provider Initial Ultrasound Date Last Menstrual Period Date Ultra Sound Weeks Gestation 08/06/2017 01/08/2017 rhogge 01/08/2017 10/23/2016 9 Eighteen To Twenty Week Danial Update Ultra Sound Date Fundal Height At Umbil Quickening Date Ultra Sound Latest Weeks Gestation Final Danial Confirmed By Final Danial Confirmed Date Final Danial Date Ultra Sound Latest Days Gestation 0 08/07/19 18 0 Pre- Flowsheet Flowsheet Date 01/08/2017 Mcbride Score Blood Edema Fundus Height Fundus Units Glucose Ketones Leukocytes Nitrite Labor Signs Protein Cervic Dilation Cervic Effacement Cervic Station neg none 9 wks none trace 1+ Positive none neg Type Weight in lbs Pre/Post Dialysis Refused 258.072441827541 BP Diastolic BP Location Tested BP Systolic BP Type 78 132 Fetus Heart Rate Present A Present Fetus Movement A No Comments No vb, lof or unusual d/c. C /O dysuria. still having nausea. but out of meds. mdr//Reviewed US and HX. EDC per US. Plans Rpt c/s with possible TL. Declined FTS. RX with Macrobid pending UA Cx. Phenergan for nausea. RTC 4 wks with 1 hr gtt. RH Flowsheet Date 01/26/2017 Mcbride Score Blood Edema Fundus Height Fundus Units Glucose Ketones Leukocytes Nitrite Labor Signs Protein Cervic Dilation Cervic Effacement Cervic Station neg none none negative none Negative neg 0cm 0% Type Weight in lbs Pre/Post Dialysis Refused 258.057542558010 BP Diastolic BP Location Tested BP Systolic BP Type 70 112 sitting Fetus Heart Rate Present A 140 Fetus Movement Comments no movement felt, no lof, c/ o spotting yesterday and this morning. low abdominal and back cramping at work yesterday. No spotting or cramping at this time. bs// Vulva erythematous (from shaving) Scant white vag discharge in vagina with no blood noted. Stressed no shaving and no SI. OK to go to work today at 3 pm.sk Flowsheet Date 03/24/2017 Mcbride Score Blood Edema Fundus Height Fundus Units Glucose Ketones Leukocytes Nitrite Labor Signs Protein Cervic Dilation Cervic Effacement Cervic Station neg none none negative trace Positive trace 0cm 0% Type Weight in lbs Pre/Post Dialysis Refused 241.64468922760 BP Diastolic BP Location Tested BP Systolic BP Type 80 122 sitting Fetus Heart Rate Present A 145 Fetus Movement A Yes Comments Afm,no lof or vb.Pt said she just feels very tired.jt// Pt says has not been here for a while because has had a lot going on. Someone reported to [employer] that she was on drugs and states has not been on drugs since early this pg. 16 mo old son went to her GM's custody and she has to go to NA meetings, parenting classes, and take random drug screens. OB PE done with pap,etc. Pre- e labs today. RTC 1-2 wks for early 1 hr and GA and anatomy U/S . sk Flowsheet Date 04/19/2017 Mcbride Score Blood Edema Fundus Height Fundus Units Glucose Ketones Leukocytes Nitrite Labor Signs Protein Cervic Dilation Cervic Effacement Cervic Station neg none 25 cm none negative none Negative Other (see comments ) neg Type Weight in lbs Pre/Post Dialysis Refused 244.681110913994 BP Diastolic BP Location Tested BP Systolic BP Type 78 120 sitting Fetus Heart Rate Present A Present Fetus Movement A Yes Comments Afm, early 1 hour gtt, with G&A u/s, no lof, no vb, uds sent-ct Reviewed US findings - mildly enlarged posterior fossa - complete, male, transverse, anterior placenta. Taking PNV. Denies constipation. Reports occasional heartburn managed with OTC meds. F/U with [facility] as soon as possible for repeat US due to enlarged posterior fossa. Scheduled for colpo on 04/28. 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 Needs note for [facility] program since she did not go today. Keep regular appt next.sk Flowsheet Date 06/09/2017 Mcbride Score Blood Edema Fundus Height Fundus Units Glucose Ketones Leukocytes Nitrite Labor Signs Protein Cervic Dilation Cervic Effacement Cervic Station neg none 33 cm none negative none Negative none trace Type Weight in lbs Pre/Post Dialysis Refused 236.299623188529 BP Diastolic BP Location Tested BP Systolic BP Type 72 118 Fetus Heart Rate Present A Present Fetus Movement A Yes Comments No vb, lof or unusual d/c. S till attending NA meetings. and taking subutex now. She states she wasnt addicted, she just Popped a pain pill every once in a while she states sometimes the subutex makes her loopy. Her other child is with her grandmother. mdr//Baby active. She has to find a new subutex clinic because she hasn't been able to keep appts. She has been stretching out her meds. SHe is taking Subutex 8 mg QD. Offered to go to for Detox but she declined. She is trying to find a new clinic. Reassured her that is an option. Needs US for growth and fluid. Flowsheet Date 06/29/2017 Mcbride Score Blood Edema Fundus Height Fundus Units Glucose Ketones Leukocytes Nitrite Labor Signs Protein Cervic Dilation Cervic Effacement Cervic Station neg none 35.5 none negative trace Negative none neg 0cm 0 % -4 Type Weight in lbs Pre/Post Dialysis Refused 235.279411504694 BP Diastolic BP Location Tested BP Systolic BP Type 74 122 Fetus Heart Rate Present A 145 Fetus Movement A Yes Comments Here today for OB Colpo with history of inconsitant ob care. c/o of stabbing pain in cervix, vaginal discharge. Baby activeOB colpo completed today, no bx - impression is ADEBAYO-I @ 11 o'clock. Plan to repeat PAP PP. Urine dark tod in color, will send repeat Pre-E panel, hepatitis panel today as well. Pt denies any use of IV drugs, but has snorted pills in the past and did share straws. Pt states she has had SI with someone other than the FOB (since they are split) - NuSwab obtained. Flowsheet Date 07/06/2017 Mcbride Score Blood Edema Fundus Height Fundus Units Glucose Ketones Leukocytes Nitrite Labor Signs Protein Cervic Dilation Cervic Effacement Cervic Station neg none 35 wks none negative none Negative Other (see comments ) neg Type Weight in lbs Pre/Post Dialysis Refused 234.245258620735 BP Diastolic BP Location Tested BP Systolic BP Type 72 118 sitting Fetus Heart Rate Present A Present Fetus Movement A Yes Comments AFM, no lof, no vb. c/o disc harge from naval. (urine cold), 1hr gtt,cbc,nst today. bs Recommend using q-tips and alcohol twice a day. RUQ US scheduled for Wednesday. Complaining of heartburn - recommend supportive therapies. Upset about possible Hepatitis - don't know where I would have got it . Referral to GI. Continue twice weekly NST/SMO Flowsheet Date 07/09/2017 Mcbride Score Blood Edema Fundus Height Fundus Units Glucose Ketones Leukocytes Nitrite Labor Signs Protein Cervic Dilation Cervic Effacement Cervic Station neg trace 39 cm none negative none Negative none trace Type Weight in lbs Pre/Post Dialysis Refused 239.363587360099 BP Diastolic BP Location Tested BP Systolic BP Type 78 128 Fetus Heart Rate Present A 144 Fetus Movement A Yes Comments us,nst, afm,no vb,no lof,neg leuk, neg nitr, c/o vaginal pressure, bile acids drawn, gbs collected, uroswab collected, did not get ruq us due to eating this am/khCough w productive green sputum, some sweating but has not taken her temp. Rhonchi in RLL: Rx Keflex generic. Stop smoking rec. Hepatitis panel negative, given to her; pt has no jaundice, no itching; NST reactive. Understands may labor before sched date. Had BP issues and wt gain last preg she states! 5# gain in 3 days! US disc: EFW 5.75#, 33%tile, MILADYS 19.6, vtx/DRW Flowsheet Date 07/15/2017 Mcbride Score Blood Edema Fundus Height Fundus Units Glucose Ketones Leukocytes Nitrite Labor Signs Protein Cervic Dilation Cervic Effacement Cervic Station neg none 36 cm none negative none Negative none 1+ Type Weight in lbs Pre/Post Dialysis Refused [id number] BP Diastolic BP Location Tested BP Systolic BP Type 76 118 Fetus Heart Rate Present A 144 Fetus Movement A Yes Comments NST, no lof or vb.knt pt res tarted subutex and was concerned about baby/khWent cold turkey on meds for 4 days and ctx started but subsided after she went back and got back on Rx! Worried re what withdrawal would do to the baby but understands we do not know and if fetus is active that is the best test we have right now. Getting frustrated w waiting . Does not think in labor. Missed hepatic US but will allow repeat Hep panel as suggested after initial labs. NQ, NC Flowsheet Date 07/21/2017 Mcbride Score Blood Edema Fundus Height Fundus Units Glucose Ketones Leukocytes Nitrite Labor Signs Protein Cervic Dilation Cervic Effacement Cervic Station neg none 37 none negative none Negative neg Type Weight in lbs Pre/Post Dialysis Refused [id number] BP Diastolic BP Location Tested BP Systolic BP Type 74 118 sitting Fetus Heart Rate Present A 140 Fetus Movement A Yes Comments Afm, nst, no lof, no vb-ct// NST-reactive; Smoking 1/2-1ppd and smoked right before got here for NST. Stressed smoking cessation. Still on Subutex 8 mg po bid. Having repeat C/S 08/04/2017. May get Depo post op. Discussed GBS + and will have IV antibiotics when comes for repeat C/S. Appt made for NST at [facility] L&D Wednesday07/24/[address] Elkins aware. RTC Wednesday for NST. sk Flowsheet Date 07/27/2017 Mcbride Score Blood Edema Fundus Height Fundus Units Glucose Ketones Leukocytes Nitrite Labor Signs Protein Cervic Dilation Cervic Effacement Cervic Station neg trace none trace trace Negative Other (see comments ) neg Type Weight in lbs Pre/Post Dialysis Refused [id number] BP Diastolic BP Location Tested BP Systolic BP Type 74 116 Fetus Heart Rate Present A Present Fetus Movement A Decreased Comments C/O hip pain, wants to deliv er now. No vb, lof or unusual d/c. NST today. Urine very dark today. mdr//C/O decreased FM X 4 days. NST reactive today, Cat 1. Discussed with LLS iwth Dx; Cholestasis would like to precede with C/S today. Will speak to Dora to macrina c/s this afternoon. RH Menstrual History Last Menstrual Date Menses Monthly On Bcp Conception Prior Menses Frequency Hcg Plus Date Menarche Onset Age 0310/23/2016 Genetic Screening And Infection History Question Response Note Patient's Age Will Be 35 Yea rs Or Older At Estimated Date of Delivery false Thalassemia (Bahamian, Hong Konger, Mediterranean, Or Background): MCV < 80 false Neural Tube Defect (Meningom yelocele, Spina Bifida, Or Anencephaly) false Congenital Heart Defect false Down Syndrome false Jack-Sachs (eg, Latter-Day, Cajun, Burmese-Vietnamese) f alse Katherine Disease false Sickle Cell Disease Or Trait () false Hemophilia Or Other Blood Disorders false Muscular Dystrophy false Cystic Fibrosis true has a 2nd cousin w/CF Aniceto's Chorea false Mental Retardation/Autism false If Yes, Was Person Tested For Fragile X? false Other Inherited Genetic Or Chromosomal Disorder false Maternal Metabolic Disorder (eg, Type 1 Diabetes , PKU) false Patient Or Baby's Father Had A Child With Defects Not Listed Above false Recurrent Loss, Or A Stillbirth false Medications (including Suppl ements, Vitamins, Herbs, OTC Drugs), Illicit/Recreational Drugs, Alcohol false If Yes, Agent(s) And Strength/Dosage false Any Other Genetic History false Live With Someone With TB Or Exposed To TB false Patient Or Partner Has History Of Genital Herpes false Rash Or Viral Illness Since Last Menstrual Perio d false History Of STD, Gonorrhea, Chlamydia, HPV, Syphi lis false Other Infection History false History of HIV false History of Hepatitis false Prior GBS-infected child false Recent Travel Outside of Country false Plans and Education First Trimester Discussed Date Discussion Item Discussion Note Discuss ed By 01/08/2017 Desire for unplanned p reg, but not using bc 01/08/2017 Alcohol 01/08/2017 Illicit/recreational drugs m ring4 01/08/2017 Nutrition 01/08/2017 Weight gain counseling mring 4 01/08/2017 Intimate Partner Violence mr ing4 01/08/2017 Unstable Housing 01/08/2017 Use of any medicatio ns (including supplements, vitamins, herbs, or OTC drugs) 01/08/2017 Avoidance of saunas or hot tubs 01/08/2017 Indications for ultrasonography 01/08/2017 Comminucation Barriers mring 4 01/08/2017 Anticipated course o f care 01/08/2017 Toxoplasmosis precau tions (cats/raw meat) mri4 01/08/2017 Sexual activity mri4 01/08/2017 Exercise mri4 01/08/2017 Tobacco/smoking cess ation counseling (ask, advise, assess, assist, and arrange) smokes 1/2 ppd 01/08/2017 Barriers to Care mri4 01/08/2017 Environmental/work hazards m ring4 01/08/2017 Depression/Anxiety ( should be performed at least once during period) mri4 01/08/2017 WIC/Hands Referral mri4 01/08/2017 Nutrition counseling ; special diet; dietary precautions (mercury, listeriosis) mri4 01/08/2017 Dental Care / Refer to Dentist mri4 01/08/2017 Seat belt use mri4 01/08/2017 Childbirth classes/h ospital facilities mri4 01/08/2017 01/08/2017 Screening for aneuploidy mri ng4 Second Trimester Discussed Date Discussion Item Discussion Note Discuss ed By 01/08/2017 Selecting a Care Provider 01/08/2017 Care Planning mri ng4 01/08/2017 Depression/Anxiety ( should be performed at least once during period) 01/08/2017 Intimate Partner Violence mr ing4 01/08/[address] anning & Contraception Wants tubal 01/08/2017 Signs and Symptoms of Labor 01/08/2017 Tobacco Cessation Co unseling (ask, advise, assess, assist, & arrange) Third Trimester Discussed Date Discussion Item Discussion Note Discuss ed By 01/08/2017 Labor Support Person(s) mrin g4 01/08/2017 Infant Feeding Intention mri ng4 01/08/2017 Labor Signs 01/08/2017 Intimate Partner Violence mr ing4 01/08/2017 Pain Management Plans spinal 01/08/2017 Movement Monitoring mr ing4 01/08/2017 Cervical Ripening/La bor Induction Counseling 01/08/2017 Trial of Labor Counseling 01/08/2017 Circumcision Preference yes mrin g4 01/08/2017 Signs and Symptoms of Preeclampsia 01/08/2017 Education (N ewborn screening, immunizations, jaundice, SIDS/Safe Sleeping, Car Seat) 01/08/2017 Depression 01/08/2017 Depression/Anxiety ( should be performed at least once during period) 01/08/2017 Postterm Counseling 01/08/2017 Feeding bottle 01/08/2017 Family Medical Leave or Disabilty Forms 01/08/2017 Tobacco Cessation Co unseling (ask, advise, assess, assist, & arrange) [facility] Delivery Information Delivery Date Delivery Type Labor Anesthesia Weeks Gestation Incision Type Labor Labor Length Hrs Delivered By Post Complications Tubal Sterilization Discharge Date Comments 7 None [facility] 38.3 Low Transvers e false LLS None 07/30/2017 Repeaat c/s LST inc, On subutex at delivery 8mg BID. Cholestas is during preg, and elevated liver enzymes Discharge Information Feeding Method Contraceptive Method Maternal HG B and HCT Levels Bottle Depo at discharge 10.5
--- OUTSIDE RECORDS SUMMARY | 2025-01-05 14:38 | XMS_ITS | Encounter Summary ---
Author Organization [facility] Address [address] [place] [address] Care Team Providers Care Supervisor Cloth Winding Name Role Phone Unavailable Primary Care Provider Unavailabl e Encounter Details Date Type Department Care Team (Late st Contact Info) Description 01/03/2025 Telephone [facility] steel shot header operator Clinic [address] [facility] [address] [place] [address] Dental, Surgeon, [address] [place] [address] Social History Tobacco Use Types Packs/Day Years Used Date Smoking Tobacco: Never Assessed Comments Unknown Sex and Gender Information Value Date Recorded Sex Assigned at Not on file Legal Sex Female 8:56 PM EDT Gender Identity Not on file Sexual Orientation Not on file documented as of this encounter Miscellaneous Notes * Telephone Encounter - Olinda Jung - 01/03/2025 1:06 PM EDT Called pt from waitlist to schedule eval but no answer so left vm message to return call/kw documented in this encounter Plan of Treatment Upcoming Encounters Date Type Department Care Team (Late st Contact Info) Description 02/14/2025 1:30 PM EDT Evaluation [facility] ticket writer Faculty Clinic [address] [facility] [address] [place] [address] Manuel Hair, MD BALTAZAR [address] [facility] [address] [place] [address] documented as of this encounter Visit Diagnoses Not on filedocumented in this encounter
--- OUTSIDE RECORDS SUMMARY | 2025-01-05 14:38 | XMS_ITS | Clinical Summary ---
Author Organization Healthcare Address [address] [place] [address] Care Team Providers Care Preparation Department Supervisor Name Role Phone Unavailable Primary Care Provider Unavailabl e Encounters Date Type Department Care Team Description 01/03/2025 Telephone [facility] radiagraph operator Clinic [address] [place] [address] Dental, Surgeon, from Last 3 Months Social History Tobacco Use Types Packs/Day Years Used Date Smoking Tobacco: Never Assessed Comments Unknown Sex and Gender Information Value Date Recorded Sex Assigned at Not on file Legal Sex Female 8:56 PM EDT Gender Identity Not on file Sexual Orientation Not on file Plan of Treatment Upcoming Encounters Date Type Department Care Team (Late st Contact Info) Description 02/14/2025 1:30 PM EDT Evaluation [facility] line service person Faculty Clinic [address] [facility] [address] [place] [address] Manuel Hair DMD, MD [address] [facility] [address] [place] [address] Health Maintenance Due Date Last Done Comments [facility]-Depression Screening 1994 [facility]-Hepatitis C Screening 1994 [facility]-/Child/Adol SDOH Screenings 1994 [facility]-Hepatitis B Vaccines (2 of 3 - 3-dose series) 12/30/1995 12/02/1995 [id number] Vaccine (#1) 11/18/1999 [facility]-Varicella Vaccines (1 of 2 - 13+ 2-dose series) 11/18/2007 [facility]- SDOH Screenings 2012 [facility]-Adult SDOH Screenings 2012 [facility]-Pneumococcal Vaccine: Pediatrics (0 to 5 Years) and At-Risk Patients (6 to 49 Years) (1 of 2 - PCV) 2013 [facility]-Zoster Vaccines (1 of 2) 2013 [facility]-Pap Smear 11/18/2015 [facility]-Hepatitis A Vaccines (2 of 2 - Risk 2-dose series) 02/16/2023 08/19/2022 [facility]-Cervical Cancer Screening 2024 [facility]-HPV/Cotest 2024 [facility]-Influenza Vaccine (Season Ended) 2025 08/19/2022 [facility]-DTaP,Tdap,and Td Vaccines (6 - Td or Tdap) 06/09/2027 06/09/2017, 11/05/2015, 12/15/2014, Additional history exists [facility]-HIB Vaccines Completed 02/23/1996 HPV Vaccines Aged Out No longer eligi ble based on patient's age to complete this topic [facility]-IPV Vaccines Aged Out No longer e ligible based on patient's age to complete this topic [facility]-Rotavirus Vaccines Aged Out No lo nger eligible based on patient's age to complete this topic Insurance AETNA [facility] MEDICAID [facility] MEDICAID DENTAL
== END 2025-01-04 23:59 | disposition home or self-care (01) ==
LOC: LAB.DROPOF 01-05 14:37
PROVIDERS: PCP Nurse Practitioner Family; Visit Provider Nurse Practitioner Family
DX: R30.0 Dysuria (principal)
CPT/HCPCS: 87086; 87088; 87186

== ENCOUNTER 2025-04-12 09:30 | Outpatient (CLI) | payer OTHER, SELFPAY ==
--- OUTSIDE RECORDS SUMMARY | 2025-02-14 13:30 | XMS_ITS | Encounter Summary ---
Author Organization Healthcare Address [address] [place] [address] Care Team Providers Care Topper Press Operator Automatic Name Role Phone Unavailable Primary Care Provider Unavailabl e Reason for Visit * Reason Comments evaluation Eval mtrue Encounter Details Date Type Department Care Team (Late st Contact Info) Description 02/14/2025 1:[address] [facility] plant technical specialist Faculty Clinic [address] [facility] [address] [place] [address] Manuel Hair DMD, MD [address] [facility] [address] [place] [address] Caries [K02.9] (Primary Dx) Social History Tobacco Use Types Packs/Day Years Used Date Smoking Tobacco: Never Assessed Comments Unknown Sex and Gender Information Value Date Recorded Sex Assigned at Not on file Legal Sex Female 8:56 PM EDT Gender Identity Not on file Sexual Orientation Not on file documented as of this encounter Last Filed Vital Signs Vital Sign Reading Time Taken Comments Blood Pressure 125/85 02/14/2025 1:50 PM EDT Pulse 86 02/14/2025 1:50 PM EDT Temperature - - Respiratory Rate - - Oxygen Saturation 100% 02/14/2025 1:50 PM EDT Inhaled Oxygen Concentration - - Weight 143 kg (315 lb 4.1 oz) 02/14/2025 1:50 PM EDT Height 157.5 cm (5' 2 ) 02/14/2025 1:50 PM EDT Body Mass Index 57.66 02/14/2025 1:50 PM EDT documented in this encounter Miscellaneous Notes * Progress Notes - Rolly Varghese DDS - 02/14/2025 1:30 PM EDT Images from the original note were not included. Oral & Maxillofacial Surgery Evaluation CC: ???I want all of my teeth taken out?? HPI: Therese Chaves is a 29 y.o. female with PMH of OUD, Fe deficient anemia, and obesity presents for evaluation and treatment of EXT of remaining teeth #2, 11, 12, 13, 14, 18, 20, 21, 22, 23,24, 25, 26, 27, 28, 29, and 31. Has discussed restorability with general dentist. Understands that dentition is terminal due to caries. The patient declines any further restorative therapy. Denies f/c/n/v. Reports dental pain and difficulty getting numb at last dentist, which led to her interest inIV sedation. Patient plans for a period of healing prior to denture fabrication. Pt is currently evaluating options for dentists to make their dentures. Review of Systems: A 14-point review of systems was performed and is negative except as noted in HPI. PAST MEDICAL HISTORY: OUD Fe deficient anemia Obesity PAST SURGICAL HISTORY: Surgical History[1] Medications: Buprenorphine Phentermine Allergies: NKDA Social History: Smoking: vapes for 3 years now Alcohol: denies Illicit drugs: OUD, former heroine user, sober 3 years Family History: Family History[2] OBJECTIVE: Vitals: 02/14/25 1350 BP: 125/85 Pulse: 86 SpO2: 100% Focused PE: Gen: NAD. Head/Face: NCAT, no facial or neck swellings. Oral: CLAYTON: 45 mm. Mallampati I. Tongue FROM, FOM soft. Rampant dental caries. Terminal dentition. Marginal erythema. No purulent drainage or evidence of acute infection. No lesions or ulcerations. Oral soft tissues appear normal. Neck: Soft, supple. Trachea midline. No masses/goiter. No LAD. CV: Well perfused Pulm: Non-labored breathing on room air Neuro: AA&Ox3 Radiographic findings: Film Ordered: Panoramic Date Ordered: 02/14/25 Radiographic Indication: Dental Evaluation Radiographic Interpretation/Findings: Condyles symmetric and seated bilaterally. Sinuses clear & symmetrical bilaterally. Normal trabeculation pattern. Rampant dental caries. Multiple missing, carious teeth. Assessment/Plan: Therese Chaves is a 29 y.o. female with PMH OUD, Fe deficient anemia, obesity who presents with terminal dentition requiring full mouth dental extraction #s 2, 11, 12, 13, 14, 18, 20, 21, 22, 23, 24, 25, 26, 27, 28, 29, and 31 in preparation for CD/CD. Pt is aware of terminal dentition and denies any treatment, wishing to proceed with FMX and sedation. -Discussed R/B/I and answered all questions. Discussed possible complications including, but not limited to, infection, bleeding, swelling, damage to adjacent teeth, jaw fracture, nerve injury, or sinus involvement, and need for further surgery. -Discussed NPO at [place] and escort -Schedule for FME #2, 11, 12, 13, 14, 18, 20, 21, 22, 23, 24, 25, 26, 27, 28, 29, and 31 in the clinic under IV sedation. Rolly Varghese DDS OMFS, PGY-1 [1] No past surgical history on file. [2] No family history on file. Cosigned by Manuel Hair DMD, MD at 02/20/2025 9:23 AM EDT Associated attestation - Manuel Hair DMD, MD - 02/20/2025 9:23 AM EDT I saw and evaluated the patient in conjunction with the resident and performed st portions of the history and exam. The residents note reflects the services I personally performed and the decisions made by me. I agree with the resident's radiographic intepretation. documented in this encounter Plan of Treatment Upcoming Encounters Date Type Department Care Team (Late st Contact Info) Description 05/16/2025 9:00 AM EDT Office Visit [facility] plant technical specialist Faculty Clinic [address] [facility] [address] [place] [address] Manuel Hair DMD, MD [address] [facility] [address] [place] [address] Scheduled Orders Name Type Priority Associated Diagnoses Orde r Schedule THERAPEUTIC PARENTERAL DRUG, SINGLE ADMINISTRATION Dental Routine 1 Occurrences urbana02/14/2025 THERAPEUTIC PARENTERAL DRUGS, 2 OR MORE ADMINISTRATIONS, DIFFERENT MEDICATIONS Dental Routine 1 Occurrences 02/14/2025 DEEP SEDATION/GENERAL ANESTHESIA - FIRST 15 MINUTES Dental Routine 1 Occurrences 02/14/2025 DEEP SEDATION/GENERAL ANESTHESIA - EACH SUBSEQUENT 15 MINUTE INCREMENT Dental Routine 1 Occurrences 02/14/2025 DEEP SEDATION/GENERAL ANESTHESIA - EACH SUBSEQUENT 15 MINUTE INCREMENT Dental Routine 1 Occurrences 02/14/2025 DEEP SEDATION/GENERAL ANESTHESIA - EACH SUBSEQUENT 15 MINUTE INCREMENT Dental Routine 1 Occurrences 02/14/2025 2 2 EXTRACTION, ERUPTED TOOTH REQUIRING REMOVAL OF BONE AND/OR SECTIONING OF TOOTH, AND INCLUDING ELEVATION OF MUCOPERIOSTEAL FLAP IF INDICATED Dental Routine 1 Occurrences 02/14/2025 11 11 EXTRACTION, ERUPTED TOOTH REQUIRING REMOVAL OF BONE AND/OR SECTIONING OF TOOTH, AND INCLUDING ELEVATION OF MUCOPERIOSTEAL FLAP IF INDICATED Dental Routine 1 Occurrences 02/14/2025 12 12 EXTRACTION, ERUPTED TOOTH REQUIRING REMOVAL OF BONE AND/OR SECTIONING OF TOOTH, AND INCLUDING ELEVATION OF MUCOPERIOSTEAL FLAP IF INDICATED Dental Routine 1 Occurrences 02/14/2025 13 13 EXTRACTION, ERUPTED TOOTH REQUIRING REMOVAL OF BONE AND/OR SECTIONING OF TOOTH, AND INCLUDING ELEVATION OF MUCOPERIOSTEAL FLAP IF INDICATED Dental Routine 1 Occurrences 02/14/2025 14 14 EXTRACTION, ERUPTED TOOTH REQUIRING REMOVAL OF BONE AND/OR SECTIONING OF TOOTH, AND INCLUDING ELEVATION OF MUCOPERIOSTEAL FLAP IF INDICATED Dental Routine 1 Occurrences 02/14/2025 18 18 EXTRACTION, ERUPTED TOOTH REQUIRING REMOVAL OF BONE AND/OR SECTIONING OF TOOTH, AND INCLUDING ELEVATION OF MUCOPERIOSTEAL FLAP IF INDICATED Dental Routine 1 Occurrences 02/14/2025 20 20 EXTRACTION, ERUPTED TOOTH REQUIRING REMOVAL OF BONE AND/OR SECTIONING OF TOOTH, AND INCLUDING ELEVATION OF MUCOPERIOSTEAL FLAP IF INDICATED Dental Routine 1 Occurrences 02/14/2025 21 21 EXTRACTION, ERUPTED TOOTH REQUIRING REMOVAL OF BONE AND/OR SECTIONING OF TOOTH, AND INCLUDING ELEVATION OF MUCOPERIOSTEAL FLAP IF INDICATED Dental Routine 1 Occurrences 02/14/2025 22 22 EXTRACTION, ERUPTED TOOTH REQUIRING REMOVAL OF BONE AND/OR SECTIONING OF TOOTH, AND INCLUDING ELEVATION OF MUCOPERIOSTEAL FLAP IF INDICATED Dental Routine [address] arting 02/14/2025 23 23 EXTRACTION, ERUPTED TOOTH REQUIRING REMOVAL OF BONE AND/OR SECTIONING OF TOOTH, AND INCLUDING ELEVATION OF MUCOPERIOSTEAL FLAP IF INDICATED Dental Routine [address] arting 02/14/2025 24 24 EXTRACTION, ERUPTED TOOTH REQUIRING REMOVAL OF BONE AND/OR SECTIONING OF TOOTH, AND INCLUDING ELEVATION OF MUCOPERIOSTEAL FLAP IF INDICATED Dental Routine [address] arting 02/14/2025 25 25 EXTRACTION, ERUPTED TOOTH REQUIRING REMOVAL OF BONE AND/OR SECTIONING OF TOOTH, AND INCLUDING ELEVATION OF MUCOPERIOSTEAL FLAP IF INDICATED Dental Routine [address] arting 02/14/2025 26 26 EXTRACTION, ERUPTED TOOTH REQUIRING REMOVAL OF BONE AND/OR SECTIONING OF TOOTH, AND INCLUDING ELEVATION OF MUCOPERIOSTEAL FLAP IF INDICATED Dental Routine [address] arting 02/14/2025 27 27 EXTRACTION, ERUPTED TOOTH REQUIRING REMOVAL OF BONE AND/OR SECTIONING OF TOOTH, AND INCLUDING ELEVATION OF MUCOPERIOSTEAL FLAP IF INDICATED Dental Routine [address] arting 02/14/2025 28 28 EXTRACTION, ERUPTED TOOTH REQUIRING REMOVAL OF BONE AND/OR SECTIONING OF TOOTH, AND INCLUDING ELEVATION OF MUCOPERIOSTEAL FLAP IF INDICATED Dental Routine [address] arting 02/14/2025 29 29 EXTRACTION, ERUPTED TOOTH REQUIRING REMOVAL OF BONE AND/OR SECTIONING OF TOOTH, AND INCLUDING ELEVATION OF MUCOPERIOSTEAL FLAP IF INDICATED Dental Routine [address] arting 02/14/2025 31 31 EXTRACTION, ERUPTED TOOTH REQUIRING REMOVAL OF BONE AND/OR SECTIONING OF TOOTH, AND INCLUDING ELEVATION OF MUCOPERIOSTEAL FLAP IF INDICATED Dental Routine [address] arting 02/14/2025 documented as of this encounter Visit Diagnoses Diagnosis Caries [K02.9]- Primary documented in this encounter
[2025-04-12 16:34] LABS: Hepatitis C Ab Qual. W/ RFX NEGATIVE (Negative)
[2025-04-13 09:21] LABS: Hepatitis B Surface Antigen Negative (Negative)
--- OUTSIDE RECORDS SUMMARY | 2025-04-13 10:25 | XMS_ITS | Encounter Summary ---
Author Organization Healthcare Address [address] [place] [address] Care Team Providers Care Client Onboarding Analyst Name Role Phone Unavailable Primary Care Provider Unavailabl e Encounter Details Date Type Department Care Team (Late st Contact Info) Description 03/14/2025 Telephone [facility] joiners supervisor Faculty [facility] [address] [facility] [address] [place] [address] Surgeon Natalie, [address] [place], [place] [id number] Social History Tobacco Use Types Packs/Day Years Used Date Smoking Tobacco: Never Assessed Comments Unknown Sex and Gender Information Value Date Recorded Sex Assigned at Not on file Legal Sex Female 8:56 PM EDT Gender Identity Not on file Sexual Orientation Not on file documented as of this encounter Miscellaneous Notes * Telephone Encounter - Nanette Li - 03/14/2025 2:41 PM EDT Called referring office again letting them know that I did not received the new referral. Spoke to Bridgett and she asked me to provide the email again and she will send that over by the end of the day. documented in this encounter Plan of Treatment Upcoming Encounters Date Type Department Care Team (Late st Contact Info) Description 05/16/2025 9:00 AM EDT Office Visit [facility] joiners supervisor Faculty Clinic [address] [facility] [address] [place] [address] Manuel Hair DMD, MD [address] [facility] [address] [place] [address] documented as of this encounter Visit Diagnoses Not on filedocumented in this encounter
--- OUTSIDE RECORDS SUMMARY | 2025-04-13 10:25 | XMS_ITS | Encounter Summary ---
Author Organization Healthcare Address [address] [place] [address] Care Team Providers Care Ladle Car Operator Name Role Phone Unavailable Primary Care Provider Unavailabl e Encounter Details Date Type Department Care Team (Late st Contact Info) Description 03/20/2025 Telephone [facility] welding machine operator Faculty Clinic [address] [facility] [address] [place] [address] None, None [address] [place] [address] Social History Tobacco Use Types Packs/Day Years Used Date Smoking Tobacco: Never Assessed Comments Unknown Sex and Gender Information Value Date Recorded Sex Assigned at Not on file Legal Sex Female 8:56 PM EDT Gender Identity Not on file Sexual Orientation Not on file documented as of this encounter Miscellaneous Notes * Telephone Encounter - Michelle Murray - 03/20/2025 1:46 PM EDT Pt called to reschd her appt in [facility]. Transferred call documented in this encounter Plan of Treatment Upcoming Encounters Date Type Department Care Team (Late st Contact Info) Description 05/16/2025 9:00 AM EDT Office Visit [facility] welding machine operator Faculty Clinic [address] [facility] [address] [place] [address] Manuel Hair DMD, MD [address] [facility] [address] [place] [address] documented as of this encounter Visit Diagnoses Not on filedocumented in this encounter
--- OUTSIDE RECORDS SUMMARY | 2025-04-13 10:25 | XMS_ITS | Encounter Summary ---
Author Organization Healthcare Address [address] [place] [address] Care Team Providers Care Plug Paster Name Role Phone Unavailable Primary Care Provider Adalgisa e Encounter Details Date Type Department Care Team (Late st Contact Info) Description 03/07/2025 Telephone [facility] vulcanized fiber unit operator Faculty Clinic [address] [facility] [address] [place] [address] Surgeon Natalie, [address] [place], [place] [id number] Social History Tobacco Use Types Packs/Day Years Used Date Smoking Tobacco: Never Assessed Comments Unknown Sex and Gender Information Value Date Recorded Sex Assigned at Not on file Legal Sex Female 8:56 PM EDT Gender Identity Not on file Sexual Orientation Not on file documented as of this encounter Miscellaneous Notes * Telephone Encounter - Nanette Li - 03/07/2025 11:03 AM EDT Called referring office to see if they can update pts referral to include #2. They agreed and I provided them my email to send it to. documented in this encounter Plan of Treatment Upcoming Encounters Date Type Department Care Team (Late st Contact Info) Description 05/16/2025 9:00 AM EDT Office Visit [facility] vulcanized fiber unit operator Faculty Clinic [address] [facility] [address] [place] [address] Manuel Hair DMD, MD [address] [facility] [address] [place] [address] documented as of this encounter Visit Diagnoses Not on filedocumented in this encounter
--- OUTSIDE RECORDS SUMMARY | 2025-04-13 10:25 | XMS_ITS | Encounter Summary ---
Author Organization [facility] Address [address] [place] [address] Care Team Providers Care Ornamental Metal Erector Name Role Phone Unavailable Primary Care Provider Unavailabl e Encounter Details Date Type Department Care Team (Latest Contact Info) Description 02/14/2025 Travel Social History Tobacco Use Types Packs/Day Years Used Date Smoking Tobacco: Never Assessed Comments Unknown Sex and Gender Information Value Date Recorded Sex Assigned at Not on file Legal Sex Female 8:56 PM EDT Gender Identity Not on file Sexual Orientation Not on file documented as of this encounter Plan of Treatment Upcoming Encounters Date Type Department Care Team (Late st Contact Info) Description 05/16/2025 9:00 AM EDT Office Visit [facility] nurse paralegal Faculty Clinic [address] [place] [id number] Manuel Hair DMD, MD [address] [place] [address] documented as of this encounter Visit Diagnoses Not on filedocumented in this encounter
--- OUTSIDE RECORDS SUMMARY | 2025-04-13 10:25 | XMS_ITS | Encounter Summary ---
Author Organization Healthcare Address [address] [place] [address] Care Team Providers Care Bleach Mixer Name Role Phone Unavailable Primary Care Provider Unavailabl e Encounter Details Date Type Department Care Team (Late st Contact Info) Description 03/20/[address] [facility] encephalographer Faculty Clinic [address] [facility] [address] [place] [address] Surgeon Natalie, [address] [place] [address] Social History Tobacco Use Types Packs/Day Years Used Date Smoking Tobacco: Never Assessed Comments Unknown Sex and Gender Information Value Date Recorded Sex Assigned at Not on file Legal Sex Female 8:56 PM EDT Gender Identity Not on file Sexual Orientation Not on file documented as of this encounter Miscellaneous Notes * Telephone Encounter - Georgia Ferreira - 03/20/2025 3:47 PM EDT Returned call from pt to r/s surgery. Pt confirmed new date and time documented in this encounter Plan of Treatment Upcoming Encounters Date Type Department Care Team (Late st Contact Info) Description 05/16/2025 9:00 AM EDT Office Visit [facility] encephalographer Faculty Clinic [address] [facility] [address] [place] [address] Manuel Hair DMD, MD [address] [facility] [address] [place] [address] documented as of this encounter Visit Diagnoses Not on filedocumented in this encounter
--- OUTSIDE RECORDS SUMMARY | 2025-04-13 10:25 | XMS_ITS | Encounter Summary ---
Author Organization [facility] Address [address] [place] [address] Care Team Providers Care Nnp Name Role Phone Unavailable Primary Care Provider Unavailabl e Encounter Details Date Type Department Care Team (Late st Contact Info) Description 03/16/2025 Telephone [facility] before school babysitter Faculty [facility] [address] [facility] [address] [place] [address] Olga Jiang, DDS [address] [facility] [address] [place] [address] Social History Tobacco Use Types Packs/Day Years Used Date Smoking Tobacco: Never Assessed Comments Unknown Sex and Gender Information Value Date Recorded Sex Assigned at Not on file Legal Sex Female 8:56 PM EDT Gender Identity Not on file Sexual Orientation Not on file documented as of this encounter Miscellaneous Notes * Telephone Encounter - Scottie Coles - 03/16/2025 11:30 AM EDT Called patient to confirm appt date/time and location, There was no answer so I left a VM for her to call and confirm appt documented in this encounter Plan of Treatment Upcoming Encounters Date Type Department Care Team (Late st Contact Info) Description 05/16/2025 9:00 AM EDT Office Visit [facility] before school babysitter [facility] [address] [facility] [address] [place] [address] Manuel Hair DMD, MD [address] [facility] [address] [place] [address] documented as of this encounter Visit Diagnoses Not on filedocumented in this encounter
--- OUTSIDE RECORDS SUMMARY | 2025-04-13 10:25 | XMS_ITS | Clinical Summary ---
Author Organization [facility] Address [address] [place] [address] Care Team Providers Care Tailor Garment Fitter Name Role Phone Unavailable Primary Care Provider Unavailabl e Medications No known medications Encounters Date Type Department Care Team Description 03/20/2025 Telephone [facility] fabric stretcher Faculty Clinic [address] [place] [address] [address] [place] [address] Surgeon Estrada MD 03/20/2025 Telephone [facility] fabric stretcher Faculty Clinic [address] [place] [address] [address] [place] [address] None, None 03/16/2025 Telephone [facility] fabric stretcher [facility] [address] [place] [address] [address] [place] [address] Olga Jiang DDS 03/14/2025 Telephone [facility] fabric stretcher [facility] [address] [place] [address] [address] [place] [address] Surgeon Estrada MD 03/07/2025 Telephone [facility] fabric stretcher [facility] [address] [place] [address] [address] [place] [address] Surgeon Estrada MD 02/14/2025 1:30 PM EDT Evaluation [facility] fabric stretcher Faculty Clinic [address] [place] [address] [address] [place] [address] Manuel Hair DMD, MD Caries [[email or web address]] (Primary Dx) 02/14/2025 Travel from Last 3 Months Social History Tobacco Use Types Packs/Day Years Used Date Smoking Tobacco: Never Assessed Comments Unknown Sex and Gender Information Value Date Recorded Sex Assigned at Not on file Legal Sex Female 8:56 PM EDT Gender Identity Not on file Sexual Orientation Not on file Last Filed Vital Signs Vital Sign Reading [...] Mass Index 57.66 02/14/2025 1:50 PM EDT Plan of Treatment Upcoming Encounters Date Type Department Care Team (Late st Contact Info) Description 05/16/2025 9:00 AM EDT Office Visit [facility] fabric stretcher Faculty Clinic [address] [facility] [address] [place] [address] Manuel Hair DMD, MD [address] [facility] [address] [place] [address] Health Maintenance Due Date Last Done Comments Dental Oral Exam 1994 Dental Prophylaxis 1994 Dental X-Ray: Bitewings 1994 Dental X-Ray: Full Mouth 1994 [facility]-Depression Screening 1994 [facility]-Hepatitis C Screening 1994 [facility]-/Child/Adol SDOH Screenings 1994 [facility]-Hepatitis B Vaccines (2 of 3 - 3-dose series) 12/30/1995 12/02/1995 [id number] Vaccine (#1) 11/18/1999 [facility]-Obesity Intervention 2000 [facility]-Varicella Vaccines (1 of 2 - 13+ 2-dose series) 11/18/2007 [facility]- SDOH Screenings 2012 [facility]-Adult SDOH Screenings 2012 [facility]-Pneumococcal Vaccine: Pediatrics (0 to 5 Years) and At-Risk Patients (6 to 49 Years) (1 of 2 - PCV) 2013 [facility]-Zoster Vaccines (1 of 2) 2013 [facility]-Pap Smear 11/18/2015 HPV Vaccines (1 - Risk 3-dose SCDM series) 2021 [facility]-Hepatitis A Vaccines (2 of 2 - Risk 2-dose series) 02/16/2023 08/19/2022 [facility]-Cervical Cancer Screening 2024 [facility]-HPV/Cotest 2024 [facility]-Influenza Vaccine (#1) 2025 08/19/2022 [facility]-DTaP,Tdap,and Td Vaccines (6 - Td or Tdap) 06/09/2027 06/09/2017, 11/05/2015, 12/15/2014, Additional history exists [facility]-HIB Vaccines Completed 02/23/1996 [facility]-IPV Vaccines Aged Out No longer e ligible based on patient's age to complete this topic [facility]-Rotavirus Vaccines Aged Out No lo nger eligible based on patient's age to complete this topic Insurance [employer] [facility] MEDICAID [facility] MEDICAID DENTAL
[2025-04-15 10:32] LABS: RPR W/RFX Titers Nonreactive (Nonreactive)
[2025-04-16 09:15] LABS: HSV-1 DNA Negative (Negative); HSV-2 DNA Negative (Negative)
== END 2025-04-12 23:59 | disposition home or self-care (01) ==
LOC: LAB.DROPOF 04-13 10:23
PROVIDERS: PCP Nurse Practitioner; Visit Provider Nurse Practitioner
DX: R30.0 Dysuria (principal); R10.30 Lower abdominal pain, unspecified; Z11.3 Encounter for screening for infections with a predominantly sexual mode of transmission
CPT/HCPCS: 86592; 86803; 87086; 87088; 87186; 87340; 87389; 87491; 87529; 87591; 87661

== ENCOUNTER 2025-07-23 11:00 | Outpatient (CLI) | payer OTHER, SELFPAY ==
[2025-07-23 16:57] LABS: HCG Qualitative, Serum Negative (Negative)
[2025-07-24 09:17] LABS: RPR W/RFX Titers Nonreactive (Nonreactive)
--- OUTSIDE RECORDS SUMMARY | 2025-07-24 11:57 | XMS_ITS | Encounter Summary ---
Author Organization Healthcare Address [address] [place] [address] Care Team Providers Care Network Strategist Name Role Phone Unavailable Primary Care Provider Unavailabl e Encounter Details Date Type Department Care Team (Late st Contact Info) Description 06/04/2025 Telephone [facility] ged preparation teacher Faculty Clinic [address] [facility] [address] [place] [address] Surgeon Natalie, [address] [place] [address] Social History Tobacco Use Types Packs/Day Years Used Date Smoking Tobacco: Never Assessed Comments Unknown Sex and Gender Information Value Date Recorded Sex Assigned at Not on file Legal Sex Female 8:56 PM EDT Gender Identity Not on file Sexual Orientation Not on file documented as of this encounter Miscellaneous Notes * Telephone Encounter - Scottie Coles - 06/04/2025 12:36 PM EST Called patient to confirm appt date/time and location, There was no answer so I left a VM for her to call and confirm appt documented in this encounter Plan of Treatment Upcoming Encounters Date Type Department Care Team (Late st Contact Info) Description 08/01/2025 8:00 AM EST Office Visit [facility] ged preparation teacher Faculty Clinic [address] [facility] [address] [place] [address] Manuel Hair DMD, MD [address] [facility] [address] [place] [address] documented as of this encounter Visit Diagnoses Not on filedocumented in this encounter
--- OUTSIDE RECORDS SUMMARY | 2025-07-24 11:57 | XMS_ITS | Encounter Summary ---
Author Organization Healthcare Address [address] [place] [address] Care Team Providers Care Decator Operator Name Role Phone Unavailable Primary Care Provider Unavailabl e Encounter Details Date Type Department Care Team (Late st Contact Info) Description 07/17/[address] [facility] machine cleaner Faculty [address] [place] [address] Surgeon Natalie, [address] [place], [place] [phone] Social History Tobacco Use Types Packs/Day Years Used Date Smoking Tobacco: Never Assessed Comments Unknown Sex and Gender Information Value Date Recorded Sex Assigned at Not on file Legal Sex Female 8:56 PM EDT Gender Identity Not on file Sexual Orientation Not on file documented as of this encounter Miscellaneous Notes * Telephone Encounter - Nanette Li - 07/17/2025 2:05 PM EST Called pt to r/s sx after receiving a vm stating she can't make her appt tomorrow due to school being called off for her kid. I attempted to call back with no answer. Left vm. documented in this encounter Plan of Treatment Upcoming Encounters Date Type Department Care Team (Late st Contact Info) Description 08/01/2025 8:00 AM EST Office Visit [facility] machine cleaner Faculty Clinic [address] [place] [address] [address] [place] [address] Manuel Hair DMD, MD [address] [facility] [address] [place] [address] documented as of this encounter Visit Diagnoses Not on filedocumented in this encounter
--- OUTSIDE RECORDS SUMMARY | 2025-07-24 11:57 | XMS_ITS | Clinical Summary ---
Author Organization [facility] Address [address] [place] [address] Care Team Providers Care Stenotype Machine Operator Name Role Phone Unavailable Primary Care Provider Unavailabl e Medications No known medications Encounters Date Type Department Care Team Description 07/19/2025 Telephone [facility] expansion joint builder Faculty Clinic [address] [facility] [place] [address] [place] [address] Surgeon Estrada MD 07/19/2025 [facility] expansion joint builder Faculty Clinic [address] [place] [address] [address] [place] [address] Surgeon Estrada MD 07/17/2025 Telephone [facility] expansion joint builder Faculty Clinic [address] [facility] [place] [address] [place] [address] Surgeon Estrada MD 07/06/2025 [facility] expansion joint builder Faculty Clinic [address] [place] [address] [address] [place] [address] Surgeon Estrada MD 06/04/2025 [facility] expansion joint builder Faculty Clinic [address] [place] [address] [address] [place] [address] Surgeon Estrada MD 05/11/2025 [facility] expansion joint builder Faculty Clinic [address] [place] [address] [address] [place] [address] Surgeon Estrada MD 04/24/2025 [facility] expansion joint builder Faculty Clinic [address] [place] [address] [address] [place] [address] Surgeon Estrada MD from Last 3 Months Social History Tobacco [...] Description 08/01/2025 8:00 AM EST Office Visit [facility] expansion joint builder Faculty Clinic [address] [facility] [address] [place] [address] Manuel Hair, MD BALTAZAR [address] [facility] [address] [place] [address] Health Maintenance Due Date Last Done Comments Dental Oral Exam 1994 Dental Prophylaxis 1994 Dental X-Ray: Bitewings 1994 Dental X-Ray: Full Mouth 1994 [facility]-Depression Screening 1994 [facility]-Hepatitis C Screening 1994 [facility]-/Child/Adol SDOH Screenings 1994 [id number] Vaccine (#1) 05/19/1995 [facility]-Hepatitis B Vaccines (2 of 3 - 3-dose series) 12/30/1995 12/02/1995 [facility]-Obesity Intervention 2000 [facility]-Varicella Vaccines (1 of [...] exists [facility]-HIB Vaccines Completed 02/23/1996 HPV Vaccines (No Doses Required) Completed [facility]-IPV Vaccines Aged Out No longer e ligible based on patient's age to complete this topic [facility]-Rotavirus Vaccines Aged Out No lo nger eligible based on patient's age to complete this topic [place] [address] [place] [address] MEDICAID [employer] Dental
--- OUTSIDE RECORDS SUMMARY | 2025-07-24 11:57 | XMS_ITS | Encounter Summary ---
Author Organization Healthcare Address [address] [place] [address] Care Team Providers Care Quarry Supervisor Name Role Phone Unavailable Primary Care Provider Unavailabl e Encounter Details Date Type Department Care Team (Late st Contact Info) Description 07/19/2025 Telephone [facility] power project manager Faculty Clinic [address] [facility] [address] [place] [address] Surgeon Natalie, [address] [place], [place] [phone] Social History Tobacco Use Types Packs/Day Years Used Date Smoking Tobacco: Never Assessed Comments Unknown Sex and Gender Information Value Date Recorded Sex Assigned at Not on file Legal Sex Female 8:56 PM EDT Gender Identity Not on file Sexual Orientation Not on file documented as of this encounter Miscellaneous Notes * Telephone Encounter - Scottie Coles - 07/19/2025 10:47 AM EST Called patient to confirm appt date/time and location, there was no answer so I left a VM for her to call. documented in this encounter Plan of Treatment Upcoming Encounters Date Type Department Care Team (Late st Contact Info) Description 08/01/2025 8:00 AM EST Office Visit [facility] power project manager Faculty Clinic [address] [facility] [address] [place] [address] Manuel Hair DMD, MD [address] [facility] [address] [place] [address] documented as of this encounter Visit Diagnoses Not on filedocumented in this encounter
--- OUTSIDE RECORDS SUMMARY | 2025-07-24 11:57 | XMS_ITS | Encounter Summary ---
Author Organization Healthcare Address [address] [place] [address] Care Team Providers Care Last Pattern Grader Name Role Phone Unavailable Primary Care Provider Unavailabl e Encounter Details Date Type Department Care Team (Late st Contact Info) Description 07/06/2025 Telephone [facility] manager application Faculty Clinic [address] [facility] [address] [place] [address] Surgeon Natalie, [address] [place], [place] [phone] Social History Tobacco Use Types Packs/Day Years Used Date Smoking Tobacco: Never Assessed Comments Unknown Sex and Gender Information Value Date Recorded Sex Assigned at Not on file Legal Sex Female 8:56 PM EDT Gender Identity Not on file Sexual Orientation Not on file documented as of this encounter Miscellaneous Notes * Telephone Encounter - Scottie Coles - 07/06/2025 8:57 AM EST Called patient to confirm appt date/time and location, There was no answer so I left a VM for her to call and confirm appt. documented in this encounter Plan of Treatment Upcoming Encounters Date Type Department Care Team (Late st Contact Info) Description 08/01/2025 8:00 AM EST Office Visit [facility] manager application Faculty Clinic [address] [facility] [address] [place] [address] Manuel Hair DMD, MD [address] [place] [facility] [address] [place] [address] documented as of this encounter Visit Diagnoses Not on filedocumented in this encounter
--- OUTSIDE RECORDS SUMMARY | 2025-07-24 11:57 | XMS_ITS ---
Author Name [facility] Organization Unknown Care Team Organization Name Specialty Phone Email Start Date End [facility] 12/2303/27/2020
--- OUTSIDE RECORDS SUMMARY | 2025-07-24 11:57 | XMS_ITS | Encounter Summary ---
Author Organization Healthcare Address [address] [place] [address] Care Team Providers Care Civil Engineering Design Draftsperson Name Role Phone Unavailable Primary Care Provider Unavailabl e Encounter Details Date Type Department Care Team (Late st Contact Info) Description 07/19/2025 Telephone [facility] aircraft engine installer Faculty Clinic [address] [facility] [address] [place] [address] Surgeon Natalie, [address] [place] [address] Social History Tobacco Use Types Packs/Day Years Used Date Smoking Tobacco: Never Assessed Comments Unknown Sex and Gender Information Value Date Recorded Sex Assigned at Not on file Legal Sex Female 8:56 PM EDT Gender Identity Not on file Sexual Orientation Not on file documented as of this encounter Miscellaneous Notes * Telephone Encounter - Scottie Coles - 07/19/2025 11:15 AM EST Called patient to confirm appt date/time and location, There was no answer so I left a VM for her to call documented in this encounter Plan of Treatment Upcoming Encounters Date Type Department Care Team (Late st Contact Info) Description 08/01/2025 8:00 AM EST Office Visit [facility] aircraft engine installer Faculty Clinic [address] [facility] [address] [place] [address] Manuel Hair DMD, MD [address] [facility] [address] [place] [address] documented as of this encounter Visit Diagnoses Not on filedocumented in this encounter
[2025-07-26 00:08] LABS: HSV-1 DNA Negative (Negative); HSV-2 DNA Negative (Negative)
== END 2025-07-23 23:59 | disposition home or self-care (01) ==
LOC: LAB.DROPOF 07-24 11:55
PROVIDERS: PCP Nurse Practitioner; Visit Provider Family Medicine
DX: A64 Unspecified sexually transmitted disease (principal); Z20.2 Contact with and (suspected) exposure to infections with a predominantly sexual mode of transmission
CPT/HCPCS: 80074; 84703; 86592; 87389; 87491; 87529; 87591; 87661